=== PATIENT | male | born 1965 | race Caucasian/White ===

== ENCOUNTER 2021-04-17 16:59 | Inpatient (IN) | payer OTHER ==
[~2021-04-17] VITALS: Ht 180.3 cm; Wt 71.9 kg
[2021-04-17 17:51] LABS: BASOPHILS ABSOLUTE AUTO 0.04 K/mm3 (0.00-0.23); BASOPHILS PERCENT AUTO 1 % (0-2); EOSINOPHILS ABSOLUTE AUTO 0.09 K/mm3 (0.00-0.68); EOSINOPHILS PERCENT AUTO 1 % (0-6); Hematocrit 23.8 % (37.0-53.0); Hemoglobin 7.7 g/dL (13.5-17.5); IMMATURE GRAN ABSOLUTE AUTO 0.03 K/mm3 (0.00-0.10); IMMATURE GRAN PERCENT AUTO 0 % (0-1); LYMPHOCYTES ABSOLUTE AUTO 0.65 K/mm3 (0.84-5.20); LYMPHOCYTES PERCENT AUTO 10 % (21-46); MONOCYTES ABSOLUTE AUTO 0.41 K/mm3 (0.16-1.47); MONOCYTES PERCENT AUTO 6 % (4-13); Mean Corpuscular HGB 29.5 pg (26.0-34.0); Mean Corpuscular HGB Conc 32.4 g/dL (31.5-36.5); Mean Corpuscular Volume 91 fL (80-100); Mean Platelet Volume 9.3 fL (9.1-12.4); NEUTROPHILS ABSOLUTE AUTO 5.49 K/mm3 (1.96-9.15); NEUTROPHILS PERCENT AUTO 82 % (41-73); Platelet Count 295 K/mm3 (150-400); RDW Standard Deviation 44.4 fL (35.1-46.3); Red Blood Cell Count 2.61 M/mm3 (4.30-5.90); White Blood Cell Count 6.71 K/mm3 (4.00-11.30)
[2021-04-17 18:20] LABS: Albumin, Blood 2.9 g/dL (3.4-5.0); Albumin/Globulin Ratio 0.7 (0.8-1.8); Bilirubin, Total 0.9 mg/dL (0.1-1.0); Bun/Creatinine Ratio 7.4 (12.0-20.0); Calcium, Blood 8.9 mg/dL (8.5-10.1); Creatinine, Blood 8.97 mg/dL (0.60-1.20); Globulin, Blood 4.4 g/dL (2.2-4.0); Potassium, Blood 3.8 mmol/L (3.5-5.5); Total Protein, Blood 7.3 g/dL (6.4-8.2)
[2021-04-17] MEDS ORDERED: ONDA4 (19:35)
[2021-04-17] MEDS ORDERED: CATAPRES0.1 MG (19:35)
[2021-04-17] MEDS ORDERED: SODBIC650 PO (19:36)
[2021-04-17] MEDS ORDERED: AMLO10 PO (19:36)
[2021-04-17] MEDS ORDERED: OLAN5 PO (19:36)
[2021-04-17] MEDS ORDERED: Norco 5-325 Ta1 EACH (19:37)
[2021-04-17] MEDS ORDERED: CARV25 PO (19:37)
[2021-04-17] MEDS ORDERED: OMEPRAZOLE MAGN20 M1 PO (19:37)
[2021-04-17] MEDS ORDERED: MONT10T PO (21:01)
[2021-04-17] MEDS ORDERED: FURO40 PO (21:03)
[2021-04-17] MEDS ORDERED: ONDA4 PO (21:36)
[2021-04-17] MEDS ORDERED: CATAPRES0.1 MG PO (21:37)
[2021-04-17] MEDS ORDERED: Norco 5-325 Ta1 EACH PO (21:38)
[2021-04-17 23:47] LABS: Source, Urine Clean Catch
[2021-04-17 23:49] LABS: Bilirubin, Urine Neg (Neg); Blood, Urine 4+ (Neg); Glucose Qualitative, Urine Neg (Neg); Ketones, Urine Neg (Neg); Leukocyte Esterase, Urine 2+ (Neg); Nitrite, Urine Neg (Neg); Protein, Urine 2+ (Neg); Urobilinogen, Urine NORM (Normal)
[2021-04-17 23:55] LABS: Appearance, Urine Clear (Clear); Color, Urine Yellow (P-Yellow)
[2021-04-17 23:56] LABS: Amorphous Light (0-Heavy); Bacteria Few /hpf; Red Blood Cells, Urine 0-2 /hpf (0-2); Squamous Epithelial Cells Not Seen /hpf (Few)
--- NOTE | 2021-04-18 04:44 | NUR ---
SHIFT SUMMARY PT ADMITTED LAST NIGHT FOR DIZZINESS, HYPOTENSION & FALL @HOME. VSS. TELE NSR @77. RECIEVED 1U PRBC FOR HGB 7.7. AOX3, SELF, PLACE, SITUATION-UNAWARE OF YR. SLOW TO RESPOND TO QUESTIONS. FLAT AFFECT. PLEASENT & COOPERATIVE. DENIES PAIN OR SOB. HAD 1 EPISODE NAUSEA/EMESIS c ABOUT 50ML CLEAR LIGHT PINK EMESIS. MEDICATED c ZOFRAN & NO FURTHER EMESIS. ABD MILD DISTENDED, ACTIVE BT. REPORTS HEARTBURN FEELING THIS AM. ABDOMEN US PLANNED FOR TODAY. DR ROB CONSULTED FOR CKD, GFR 6 & CREAT 8.97. HAS FISTULA LAC, BRUIT/THRILL ASSESSED, PT HAS NEVER RECIEVED DIALYSIS-DR ROB REPORTED PT TO RECIEVE DIALYSIS THIS AM. HAS LRG AMOUNT BRUISING ON BILAT LEGS FROM CALVES TO THIGHS, ALONG c PETECHIA & PURPURA. ALSO HAS GOLF BALL SIZE GROWTH ON R FLANK, REDISH PINK c SEROUS DRAINAGE. ATTEMPTED TO CONSULT DERMATOLOGY PER DR ROB REQUEST, HOWEVER OFFICE IS CLOSED UNTIL 04/21. CALL LIGHT & BED ALARM IN PLACE. SISTER IN LAW INFORMED THIS NURSE THAT PTS LIVING CONDITIONS AT HIS HOUSE IN [place] MAY NOT BE GOOD FOR HIM TO GO BACK TO & STATED PT "DOESN'T HAVE RUNNING WATER AT HIS HOUSE," AND PT MAY NEED PLACEMENT OR ASSISTANCE AT OR.
[2021-04-18 05:31] LABS: BASOPHILS ABSOLUTE AUTO 0.04 K/mm3 (0.00-0.23); BASOPHILS PERCENT AUTO 1 % (0-2); EOSINOPHILS ABSOLUTE AUTO 0.15 K/mm3 (0.00-0.68); EOSINOPHILS PERCENT AUTO 2 % (0-6); Hematocrit 26.9 % (37.0-53.0); Hemoglobin 8.8 g/dL (13.5-17.5); IMMATURE GRAN ABSOLUTE AUTO 0.03 K/mm3 (0.00-0.10); IMMATURE GRAN PERCENT AUTO 0 % (0-1); LYMPHOCYTES PERCENT AUTO 10 % (21-46); MONOCYTES ABSOLUTE AUTO 0.47 K/mm3 (0.16-1.47); MONOCYTES PERCENT AUTO 7 % (4-13); Mean Corpuscular HGB 28.9 pg (26.0-34.0); Mean Corpuscular HGB Conc 32.7 g/dL (31.5-36.5); Mean Corpuscular Volume 89 fL (80-100); Mean Platelet Volume 9.5 fL (9.1-12.4); NEUTROPHILS ABSOLUTE AUTO 5.36 K/mm3 (1.96-9.15); NEUTROPHILS PERCENT AUTO 79 % (41-73); Platelet Count 279 K/mm3 (150-400); RDW Coefficient Variation 15.6 % (11.7-14.2); RDW Standard Deviation 48.3 fL (35.1-46.3); Red Blood Cell Count 3.04 M/mm3 (4.30-5.90); White Blood Cell Count 6.75 K/mm3 (4.00-11.30)
[2021-04-18 06:08] LABS: Alanine Aminotransfer (ALT/SGP 13 U/L (12-78); Albumin, Blood 2.7 g/dL (3.4-5.0); Albumin/Globulin Ratio 0.6 (0.8-1.8); Alk Phos 82 U/L (50-136); Anion Gap 12 mmol/L (6-16); Aspartate Aminotrans (AST/SGOT 4 U/L (12-37); Bilirubin, Direct 0.3 mg/dL (0.0-0.3); Bilirubin, Indirect 0.9 mg/dL (0.1-0.7); Bilirubin, Total 1.2 mg/dL (0.1-1.0); Blood Urea Nitrogen 70 mg/dL (8-24); CO2, Blood 18 mmol/L (21-32); CPK Creatine Kinase 42 U/L (39-308); Calcium, Blood 8.7 mg/dL (8.5-10.1); Chloride, Blood 106 mmol/L (98-108); Globulin, Blood 4.2 g/dL (2.2-4.0); Glucose, Blood 105 mg/dL (70-99); Magnesium, Blood 1.9 mg/dL (1.6-2.4); Phosphorus, Blood 5.5 mg/dL (2.5-4.9); Potassium, Blood 3.8 mmol/L (3.5-5.5); Sodium, Blood 136 mmol/L (136-145); Total Protein, Blood 6.9 g/dL (6.4-8.2)
[2021-04-18 06:14] LABS: Creatinine, Blood 8.72 mg/dL (0.60-1.20); Glomerular Filtration Rate 6 (60-)
--- NOTE | 2021-04-18 16:47 | NUR ---
Provided CKD diet education. Discussed limiting sodium which pt reported he already does, but then pt was uanble to verbalize foods high in sodium. Discussed protein recommendations while not on dialysis vs recommendations if he starts dialysis. Discussed limiting K and Phos depending on labs. Discussed that Phos is currently high and reviewed dietary sources of Phos. Pt actively participated in education but did not apepar to understand all of the topics covered. Reinforcement will likely be needed.
--- NOTE | 2021-04-18 16:59 | NUR ---
SHIFT SUMMARY PATIENT IS ALERT AND ORIENTED X3 UNSURE OF DATE. ON RA, NS RUNNING AT 75 MLS AN HOUR. PATIENT IS DOING A 24HR URINE TEST CURRENTLY UNTIL 04/19. GENERAL SURGERY WAS CONSULTED TODAY FOR A GROWTH ON THE PATIENT'S RIGHT FLANK AREA. VSS, PATIENT IS RESTING IN BED. NO ACUTE CHANGES THIS SHIFT. WILL CONTINUE TO CARE FOR UNTIL SHIFT REPORT IS GIVEN TO ONCOMING NURSE.
[2021-04-19 05:34] LABS: BASOPHILS ABSOLUTE AUTO 0.05 K/mm3 (0.00-0.23); BASOPHILS PERCENT AUTO 1 % (0-2); EOSINOPHILS ABSOLUTE AUTO 0.22 K/mm3 (0.00-0.68); EOSINOPHILS PERCENT AUTO 4 % (0-6); Hematocrit 21.6 % (37.0-53.0); Hemoglobin 6.9 g/dL (13.5-17.5); IMMATURE GRAN ABSOLUTE AUTO 0.02 K/mm3 (0.00-0.10); IMMATURE GRAN PERCENT AUTO 0 % (0-1); LYMPHOCYTES ABSOLUTE AUTO 0.94 K/mm3 (0.84-5.20); LYMPHOCYTES PERCENT AUTO 19 % (21-46); MONOCYTES ABSOLUTE AUTO 0.51 K/mm3 (0.16-1.47); MONOCYTES PERCENT AUTO 10 % (4-13); Mean Corpuscular HGB 28.9 pg (26.0-34.0); Mean Corpuscular HGB Conc 31.9 g/dL (31.5-36.5); Mean Corpuscular Volume 90 fL (80-100); Mean Platelet Volume 9.4 fL (9.1-12.4); NEUTROPHILS ABSOLUTE AUTO 3.35 K/mm3 (1.96-9.15); NEUTROPHILS PERCENT AUTO 66 % (41-73); Platelet Count 214 K/mm3 (150-400); RDW Coefficient Variation 15.9 % (11.7-14.2); RDW Standard Deviation 50.4 fL (35.1-46.3); Red Blood Cell Count 2.39 M/mm3 (4.30-5.90); White Blood Cell Count 5.09 K/mm3 (4.00-11.30)
[2021-04-19 06:15] LABS: Protein, Urine Quantitative 69.4 mg/dL (0.0-11.9)
[2021-04-19 06:19] LABS: Magnesium, Blood 1.6 mg/dL (1.6-2.4)
[2021-04-19 06:25] LABS: Albumin, Blood 2.3 g/dL (3.4-5.0); Anion Gap 11 mmol/L (6-16); Blood Urea Nitrogen 72 mg/dL (8-24); Bun/Creatinine Ratio 8.2 (12.0-20.0); CO2, Blood 20 mmol/L (21-32); Calcium, Blood 7.9 mg/dL (8.5-10.1); Chloride, Blood 106 mmol/L (98-108); Creatinine, Blood 8.74 mg/dL (0.60-1.20); Glomerular Filtration Rate 6 (60-); Glucose, Blood 98 mg/dL (70-99); Phosphorus, Blood 5.3 mg/dL (2.5-4.9); Potassium, Blood 3.8 mmol/L (3.5-5.5); Sodium, Blood 137 mmol/L (136-145)
--- NOTE | 2021-04-19 06:41 | NUR ---
SHIFT SUMMARY PATIENT ALERT AND ORIENTED X3. HAD NO COMPLAINTS OF PAIN OR SHORTNESS OF BREATH. NO ACUTE ISSUES NOTED OVERNIGHT. BED IN LOWEST POSITION WITH WHEELS LOCKED AND ALARM ON. CALL LIGHT WITHIN REACH. REPORT GIVEN TO ONCOMING RN.
--- NOTE | 2021-04-19 16:57 | NUR ---
SHIFT SUMMARY PT AAOX3, HAS A FLAT AFFECT. PLEASANT AND COOPERATIVE TO CARE. ABLE TO MAKE NEEDS KNOWN. PT WORKED WITH THERAPY THIS SHIFT. PT REQUIRES 1P ASSIST W/ FWW WHEN AMBULATING. USES URINAL AT BEDSIDE, DENIES URINARY DISCOMFORT. PT MEDICATED FOR PAIN PER EMAR. PT HAD 1 UNIT PRBC THIS SHIFT ORDERED, VSS, NO ASE NOTED DURING AND AFTER TRANSFUSION. NO C/O CP, SOB, OR N/V/D. BED AT LOWEST POSITION. CALL LIGHT WITHIN REACH.
[2021-04-19 17:35] LABS: Hematocrit 26.4 % (37.0-53.0); Hemoglobin 8.6 g/dL (13.5-17.5)
[2021-04-20 05:16] LABS: BASOPHILS ABSOLUTE AUTO 0.03 K/mm3 (0.00-0.23); BASOPHILS PERCENT AUTO 1 % (0-2); EOSINOPHILS ABSOLUTE AUTO 0.28 K/mm3 (0.00-0.68); EOSINOPHILS PERCENT AUTO 6 % (0-6); Hemoglobin 9.1 g/dL (13.5-17.5); IMMATURE GRAN ABSOLUTE AUTO 0.02 K/mm3 (0.00-0.10); IMMATURE GRAN PERCENT AUTO 0 % (0-1); LYMPHOCYTES ABSOLUTE AUTO 0.79 K/mm3 (0.84-5.20); LYMPHOCYTES PERCENT AUTO 17 % (21-46); MONOCYTES ABSOLUTE AUTO 0.51 K/mm3 (0.16-1.47); MONOCYTES PERCENT AUTO 11 % (4-13); Mean Corpuscular HGB 30.1 pg (26.0-34.0); Mean Corpuscular HGB Conc 33.7 g/dL (31.5-36.5); Mean Corpuscular Volume 89 fL (80-100); Mean Platelet Volume 9.5 fL (9.1-12.4); NEUTROPHILS ABSOLUTE AUTO 3.12 K/mm3 (1.96-9.15); NEUTROPHILS PERCENT AUTO 66 % (41-73); Platelet Count 228 K/mm3 (150-400); RDW Coefficient Variation 15.6 % (11.7-14.2); RDW Standard Deviation 49.1 fL (35.1-46.3); Red Blood Cell Count 3.02 M/mm3 (4.30-5.90); White Blood Cell Count 4.75 K/mm3 (4.00-11.30)
--- NOTE | 2021-04-20 06:11 | NUR ---
SHIFT SUMMARY PATIENT ALERT AND ORIENTED X3. HAD NO COMPLAINTS OF PAIN OR SHORTNESS OF BREATH. SLEPT WELL OVERNIGHT. NO ACUTE ISSUES NOTED. CALL LIGHT WITHIN REACH. REPORT GIVEN TO ONCOMING RN.
[2021-04-20 06:23] LABS: Albumin, Blood 2.3 g/dL (3.4-5.0); Albumin/Globulin Ratio 0.7 (0.8-1.8); Bilirubin, Direct 0.3 mg/dL (0.0-0.3); Bilirubin, Indirect 0.5 mg/dL (0.1-0.7); Bilirubin, Total 0.8 mg/dL (0.1-1.0); Calcium, Blood 8.2 mg/dL (8.5-10.1); Globulin, Blood 3.1 g/dL (2.2-4.0); Magnesium, Blood 1.6 mg/dL (1.6-2.4); Phosphorus, Blood 4.9 mg/dL (2.5-4.9); Potassium, Blood 3.7 mmol/L (3.5-5.5); Total Protein, Blood 5.4 g/dL (6.4-8.2)
[2021-04-20 06:31] LABS: Bun/Creatinine Ratio 8.3 (12.0-20.0); Creatinine, Blood 8.1 mg/dL (0.60-1.20)
--- NOTE | 2021-04-20 18:02 | NUR ---
PT A/O X 3, QUIET TODAY WITH A MOSTLY FLAT AFFECT, HAS BEEN PLEASANT AND COOPERATIVE. TELE DISCONTINUED THIS MORNING, LABS IMPROVING AND HE DID NOT RECEIVE DIALYSIS TODAY. NO REPORTS PAIN, SOB OR DIZZINESS TODAY. NO ACUTE CHANGES NOTED THIS SHIFT, CALL HINES IN REACH, WILL CONTINUE TO MONITOR AND REPORT TO ONCOMING RN
[2021-04-21 05:43] LABS: BASOPHILS ABSOLUTE AUTO 0.04 K/mm3 (0.00-0.23); BASOPHILS PERCENT AUTO 1 % (0-2); EOSINOPHILS ABSOLUTE AUTO 0.29 K/mm3 (0.00-0.68); EOSINOPHILS PERCENT AUTO 6 % (0-6); Hemoglobin 8.6 g/dL (13.5-17.5); IMMATURE GRAN ABSOLUTE AUTO 0.02 K/mm3 (0.00-0.10); IMMATURE GRAN PERCENT AUTO 0 % (0-1); LYMPHOCYTES PERCENT AUTO 14 % (21-46); MONOCYTES ABSOLUTE AUTO 0.47 K/mm3 (0.16-1.47); MONOCYTES PERCENT AUTO 10 % (4-13); Mean Corpuscular HGB Conc 33.1 g/dL (31.5-36.5); Mean Corpuscular Volume 91 fL (80-100); Mean Platelet Volume 9.6 fL (9.1-12.4); NEUTROPHILS ABSOLUTE AUTO 3.43 K/mm3 (1.96-9.15); NEUTROPHILS PERCENT AUTO 69 % (41-73); Platelet Count 224 K/mm3 (150-400); RDW Coefficient Variation 15.8 % (11.7-14.2); RDW Standard Deviation 49.7 fL (35.1-46.3); Red Blood Cell Count 2.87 M/mm3 (4.30-5.90); White Blood Cell Count 4.95 K/mm3 (4.00-11.30)
--- NOTE | 2021-04-21 06:26 | NUR ---
SHIFT SUMMARY PATIENT ALERT AND ORIENTED X3. HAD NO COMPLAINTS OF PAIN OR SHORTNESS OF BREATH. NO ACUTE ISSUES NOTED OVERNIGHT. CALL LIGHT WITHIN REACH. REPORT GIVEN TO ONCOMING RN.
[2021-04-21 06:36] LABS: Albumin, Blood 2.1 g/dL (3.4-5.0); Albumin/Globulin Ratio 0.7 (0.8-1.8); Bilirubin, Direct 0.2 mg/dL (0.0-0.3); Bilirubin, Indirect 0.4 mg/dL (0.1-0.7); Bilirubin, Total 0.6 mg/dL (0.1-1.0); Bun/Creatinine Ratio 8.2 (12.0-20.0); Calcium, Blood 7.8 mg/dL (8.5-10.1); Creatinine, Blood 7.47 mg/dL (0.60-1.20); Globulin, Blood 3.2 g/dL (2.2-4.0); Magnesium, Blood 1.5 mg/dL (1.6-2.4); Phosphorus, Blood 4.2 mg/dL (2.5-4.9); Potassium, Blood 3.9 mmol/L (3.5-5.5); Total Protein, Blood 5.3 g/dL (6.4-8.2)
[2021-04-21 13:10] LABS: ANA DIRECT Negative (Negative); ANTIGLOMERULAR BM AB 3 units (0-20); ANTIMYELOPEROXIDASE (MPO) ABS <9.0 U/mL (0.0-9.0); ANTIPROTEINASE 3 (PR-3) ABS <3.5 U/mL (0.0-3.5); ATYPICAL PANCA <1:20 titer (Neg:<1:20); CYTOPLASMIC (C-ANCA) <1:20 titer (Neg:<1:20); PERINUCLEAR (P-ANCA) <1:20 titer (Neg:<1:20)
[2021-04-21 14:10] LABS: M-SPIKE, % 8.9 % (Not Observed); M-SPIKE, MG/24 HR 49.5 mg/24 hr (Not Observed); PROTEIN,TOTAL,URINE 39.7 mg/dL (Not Estab.)
[2021-04-21 14:10] LABS: ALPHA-1-GLOBULIN 0.4 g/dL (0.0-0.4); ALPHA-2-GLOBULIN 0.9 g/dL (0.4-1.0); BETA GLOBULIN 0.8 g/dL (0.7-1.3); GLOBULIN, TOTAL 3.1 g/dL (2.2-3.9); IMMUNOGLOBULIN A, QN, SERUM 132 mg/dL (90-386); IMMUNOGLOBULIN G, QN, SERUM 884 mg/dL (603-1613); IMMUNOGLOBULIN M, QN, SERUM 80 mg/dL (20-172); M-SPIKE Not Observed g/dL (Not Observed); PROTEIN, TOTAL, SERUM 6.1 g/dL (6.0-8.5)
--- NOTE | 2021-04-21 17:32 | NUR ---
PATIENT IS ALERT AND ORIENTED AND COOPERATIVE WITH CARE. C/O PAIN, EMDICATED PER EMAR. USES THE URINAL INDEPENDENTLY. WORKED WITH PHYSICAL THERAPY THIS AFTERNOON AND WAS MADE INDEPENDENT IN HIS ROOM. THE GROWTH ON HIS RIGHT FLANK WAS CLEANED AND DRESSED. WILL CONTINUE TO MONITOR
[2021-04-22 05:52] LABS: BASOPHILS ABSOLUTE AUTO 0.04 K/mm3 (0.00-0.23); BASOPHILS PERCENT AUTO 1 % (0-2); EOSINOPHILS ABSOLUTE AUTO 0.35 K/mm3 (0.00-0.68); EOSINOPHILS PERCENT AUTO 9 % (0-6); Hematocrit 26.1 % (37.0-53.0); Hemoglobin 8.3 g/dL (13.5-17.5); IMMATURE GRAN ABSOLUTE AUTO 0.01 K/mm3 (0.00-0.10); IMMATURE GRAN PERCENT AUTO 0 % (0-1); LYMPHOCYTES ABSOLUTE AUTO 0.78 K/mm3 (0.84-5.20); LYMPHOCYTES PERCENT AUTO 20 % (21-46); MONOCYTES ABSOLUTE AUTO 0.47 K/mm3 (0.16-1.47); MONOCYTES PERCENT AUTO 12 % (4-13); Mean Corpuscular HGB 29.4 pg (26.0-34.0); Mean Corpuscular HGB Conc 31.8 g/dL (31.5-36.5); Mean Corpuscular Volume 93 fL (80-100); Mean Platelet Volume 9.4 fL (9.1-12.4); NEUTROPHILS ABSOLUTE AUTO 2.36 K/mm3 (1.96-9.15); NEUTROPHILS PERCENT AUTO 59 % (41-73); Platelet Count 224 K/mm3 (150-400); RDW Coefficient Variation 15.8 % (11.7-14.2); RDW Standard Deviation 49.2 fL (35.1-46.3); Red Blood Cell Count 2.82 M/mm3 (4.30-5.90); White Blood Cell Count 4.01 K/mm3 (4.00-11.30)
--- NOTE | 2021-04-22 06:18 | NUR ---
STONE PRODUCT FABRICATOR SUMMARY ADMITTED FOR POSTURAL DIZZINESS WITH PRESYNCOPE. PT IS A FULL CODE. POSSIBLE D/C HOME. PT HAS BEEN INDEPENDENT IN THE ROOM. COOPERATIVE WITH CARE. RECEIVING IV SODIUM BICARBONATE. NO OTHER CONCERNS THIS SHIFT.
[2021-04-22 06:47] LABS: Anion Gap 12 mmol/L (6-16); Blood Urea Nitrogen 59 mg/dL (8-24); Bun/Creatinine Ratio 8.5 (12.0-20.0); CO2, Blood 25 mmol/L (21-32); Chloride, Blood 104 mmol/L (98-108); Creatinine, Blood 6.98 mg/dL (0.60-1.20); Glomerular Filtration Rate 8 (60-); Glucose, Blood 89 mg/dL (70-99); Magnesium, Blood 1.5 mg/dL (1.6-2.4); Phosphorus, Blood 4.3 mg/dL (2.5-4.9); Potassium, Blood 3.8 mmol/L (3.5-5.5); Sodium, Blood 141 mmol/L (136-145)
--- NOTE | 2021-04-22 17:07 | NUR ---
PATIENT IS ALERT AND ORIENTED AND COOPERATIVE WITH CARE. HE HAS BEEN INDEPENDENT IN HIS ROOM. USES THE URINAL. MEDICATED FOR PAIN PER EMAR. THE PATIENT'S BROTHER IS AT THE BEDSIDE AT THIS TIME. WILL CONTINUE TO MONITOR
[2021-04-23 05:31] LABS: BASOPHILS ABSOLUTE AUTO 0.03 K/mm3 (0.00-0.23); BASOPHILS PERCENT AUTO 1 % (0-2); EOSINOPHILS ABSOLUTE AUTO 0.32 K/mm3 (0.00-0.68); EOSINOPHILS PERCENT AUTO 9 % (0-6); Hematocrit 27.4 % (37.0-53.0); Hemoglobin 8.7 g/dL (13.5-17.5); IMMATURE GRAN ABSOLUTE AUTO 0.02 K/mm3 (0.00-0.10); IMMATURE GRAN PERCENT AUTO 1 % (0-1); LYMPHOCYTES ABSOLUTE AUTO 0.53 K/mm3 (0.84-5.20); LYMPHOCYTES PERCENT AUTO 15 % (21-46); MONOCYTES ABSOLUTE AUTO 0.42 K/mm3 (0.16-1.47); MONOCYTES PERCENT AUTO 12 % (4-13); Mean Corpuscular HGB 29.6 pg (26.0-34.0); Mean Corpuscular HGB Conc 31.8 g/dL (31.5-36.5); Mean Corpuscular Volume 93 fL (80-100); Mean Platelet Volume 9.2 fL (9.1-12.4); NEUTROPHILS ABSOLUTE AUTO 2.14 K/mm3 (1.96-9.15); NEUTROPHILS PERCENT AUTO 62 % (41-73); Platelet Count 217 K/mm3 (150-400); RDW Coefficient Variation 16.1 % (11.7-14.2); RDW Standard Deviation 51.1 fL (35.1-46.3); Red Blood Cell Count 2.94 M/mm3 (4.30-5.90); White Blood Cell Count 3.46 K/mm3 (4.00-11.30)
[2021-04-23 05:49] LABS: Anion Gap 9 mmol/L (6-16); Blood Urea Nitrogen 55 mg/dL (8-24); Bun/Creatinine Ratio 8.1 (12.0-20.0); CO2, Blood 25 mmol/L (21-32); Calcium, Blood 8.4 mg/dL (8.5-10.1); Chloride, Blood 105 mmol/L (98-108); Creatinine, Blood 6.82 mg/dL (0.60-1.20); Glomerular Filtration Rate 8 (60-); Glucose, Blood 93 mg/dL (70-99); Magnesium, Blood 1.8 mg/dL (1.6-2.4); Phosphorus, Blood 3.8 mg/dL (2.5-4.9); Potassium, Blood 4.1 mmol/L (3.5-5.5); Sodium, Blood 139 mmol/L (136-145)
--- NOTE | 2021-04-23 16:53 | NUR ---
SHIFT SUMMARY PT GETTING IV FLUIDS, NS AT 75 ML/HR. LIANE CONSULTED AND MANAGING THIS. PT ANXIOUS ABOUT PLAN MOVING FORWARD, WETHER HE WILL NEED DIALYSIS OR NOT. THIS DECISION HAS NOT BEEN MADE BY NEPHROLOGY YET. PT REFUSED TO GET OUT OF BED TODAY, BUT IS AGREEABLE TO GETTING UP FOR DINNER. PT MEDICATED FOR PAIN SCHEDULED FOR HIS SCOLIOSIS. DENIES OTHER NEEDS AT THIS TIME. NO OTHER ACUTE CHANGES IN ASSESSMENT AT THIS TIME. VS REVIEWED. PT RESTING IN BED. CALL LIGHT IN REACH.
--- NOTE | 2021-04-24 05:39 | NUR ---
PT AWAKE, LYING IN BED, WATCHING TV. AAOX4. NO COMPLAINTS VOICED. LUE FISTULA +BRUITS,+THRILLS.BED IN LOW POSITION W/ CALL LIGHT WITHIN REACH. DR ROB AT BEDSIDE A FEW MINUTES AGO AND GAVE ORDERS TO CHANGE THE RATE OF THE IV FLUIDS FROM 75ML/HR TO 50ML/HR. PT UPDATED ON THE PLAN OF CARE. WILL CONTINUE TO MONITOR.
[2021-04-24 06:16] LABS: Anion Gap 8 mmol/L (6-16); Blood Urea Nitrogen 56 mg/dL (8-24); Bun/Creatinine Ratio 8.2 (12.0-20.0); CO2, Blood 25 mmol/L (21-32); Calcium, Blood 8.4 mg/dL (8.5-10.1); Chloride, Blood 107 mmol/L (98-108); Creatinine, Blood 6.87 mg/dL (0.60-1.20); Glomerular Filtration Rate 8 (60-); Glucose, Blood 91 mg/dL (70-99); Magnesium, Blood 1.8 mg/dL (1.6-2.4); Phosphorus, Blood 4.1 mg/dL (2.5-4.9); Potassium, Blood 4.3 mmol/L (3.5-5.5); Sodium, Blood 140 mmol/L (136-145)
[2021-04-24 06:53] LABS: BASOPHILS ABSOLUTE AUTO 0.02 K/mm3 (0.00-0.23); BASOPHILS PERCENT AUTO 1 % (0-2); EOSINOPHILS ABSOLUTE AUTO 0.28 K/mm3 (0.00-0.68); EOSINOPHILS PERCENT AUTO 10 % (0-6); Hematocrit 26.9 % (37.0-53.0); Hemoglobin 8.4 g/dL (13.5-17.5); IMMATURE GRAN ABSOLUTE AUTO 0.01 K/mm3 (0.00-0.10); IMMATURE GRAN PERCENT AUTO 0 % (0-1); LYMPHOCYTES ABSOLUTE AUTO 0.52 K/mm3 (0.84-5.20); LYMPHOCYTES PERCENT AUTO 18 % (21-46); MONOCYTES ABSOLUTE AUTO 0.37 K/mm3 (0.16-1.47); MONOCYTES PERCENT AUTO 13 % (4-13); Mean Corpuscular HGB 29.7 pg (26.0-34.0); Mean Corpuscular HGB Conc 31.2 g/dL (31.5-36.5); Mean Corpuscular Volume 95 fL (80-100); Mean Platelet Volume 9.5 fL (9.1-12.4); NEUTROPHILS ABSOLUTE AUTO 1.69 K/mm3 (1.96-9.15); NEUTROPHILS PERCENT AUTO 59 % (41-73); Platelet Count 228 K/mm3 (150-400); RDW Coefficient Variation 16.1 % (11.7-14.2); RDW Standard Deviation 53.3 fL (35.1-46.3); Red Blood Cell Count 2.83 M/mm3 (4.30-5.90); White Blood Cell Count 2.89 K/mm3 (4.00-11.30)
--- NOTE | 2021-04-24 17:52 | NUR ---
PATIENT IS ALERT AND ORIENTED AND COOPERATIVE WITH CARE. PATIENT HAD HIS FIRST DIALYSIS TREATMENT TODAY. HE SHOWERED THIS AFTERNOON. INDEPENDENT IN HIS ROOM. PAIN MEDICATED PER EMAR. WILL CONTINUE TO MONITOR
[2021-04-25 05:14] LABS: BASOPHILS ABSOLUTE AUTO 0.03 K/mm3 (0.00-0.23); BASOPHILS PERCENT AUTO 1 % (0-2); EOSINOPHILS ABSOLUTE AUTO 0.22 K/mm3 (0.00-0.68); EOSINOPHILS PERCENT AUTO 7 % (0-6); Hematocrit 25.6 % (37.0-53.0); Hemoglobin 8.1 g/dL (13.5-17.5); IMMATURE GRAN ABSOLUTE AUTO 0.01 K/mm3 (0.00-0.10); IMMATURE GRAN PERCENT AUTO 0 % (0-1); LYMPHOCYTES ABSOLUTE AUTO 0.65 K/mm3 (0.84-5.20); LYMPHOCYTES PERCENT AUTO 21 % (21-46); MONOCYTES ABSOLUTE AUTO 0.56 K/mm3 (0.16-1.47); MONOCYTES PERCENT AUTO 18 % (4-13); Mean Corpuscular HGB 30.1 pg (26.0-34.0); Mean Corpuscular HGB Conc 31.6 g/dL (31.5-36.5); Mean Corpuscular Volume 95 fL (80-100); Mean Platelet Volume 9.4 fL (9.1-12.4); NEUTROPHILS ABSOLUTE AUTO 1.64 K/mm3 (1.96-9.15); NEUTROPHILS PERCENT AUTO 53 % (41-73); Platelet Count 198 K/mm3 (150-400); RDW Coefficient Variation 16.7 % (11.7-14.2); RDW Standard Deviation 55.3 fL (35.1-46.3); Red Blood Cell Count 2.69 M/mm3 (4.30-5.90); White Blood Cell Count 3.11 K/mm3 (4.00-11.30)
[2021-04-25 05:46] LABS: Anion Gap 9 mmol/L (6-16); Blood Urea Nitrogen 39 mg/dL (8-24); Bun/Creatinine Ratio 7.4 (12.0-20.0); CO2, Blood 29 mmol/L (21-32); Calcium, Blood 8.3 mg/dL (8.5-10.1); Chloride, Blood 106 mmol/L (98-108); Creatinine, Blood 5.25 mg/dL (0.60-1.20); Glomerular Filtration Rate 11 (60-); Glucose, Blood 92 mg/dL (70-99); Magnesium, Blood 1.7 mg/dL (1.6-2.4); Phosphorus, Blood 3.4 mg/dL (2.5-4.9); Sodium, Blood 144 mmol/L (136-145)
--- NOTE | 2021-04-25 06:28 | NUR ---
PT RESTED WELL OVERNIGHT. NO COMPLAINTS VOICED. LUE AV FISTULA +BRUITS AND +THRILLS. IVF CONTINUES, IV SITE BENIGN. PT HAD FIRST SESSION OF HEMODIALYSIS YESTERDAY, 04/24/21 FOR 2.5 HRS AND 500ML REMOVED. PT CONTINUES TO HAVE URINE OUTPUT. MEDICATED FOR CHRONIC BACK PAIN SCHEDULED PER EMAR WITH GOOD EFFECT. BED IN LOW POSITION WITH THE CALL LIGHT WITHIN EASY REACH.
[2021-04-25 08:09] LABS: HBSAG SCREEN Negative (Negative); HEP A AB, IGM Negative (Negative); HEP B CORE AB, IGM Negative (Negative); HEP C VIRUS AB 0.1 (0.0-0.9)
--- NOTE | 2021-04-25 18:34 | NUR ---
SHIFT SUMMARY PT WITH UNEVENTFUL DAY. AA &OX4. NO C/O PAIN, SOB OR N/V VOICED. NAD NOTED, VSS. BROTER AT BEDSIDE. WORKED WITH PT WITHOUT ANY ISSUES AND WALKED THE LEUNG MULTIPLE TIMES. RECEIVED SCHEDULED PAIN MEDS X 2. WILL CONTINUE TO MONITOR IN CARE
[2021-04-26 05:51] LABS: BASOPHILS ABSOLUTE AUTO 0.03 K/mm3 (0.00-0.23); BASOPHILS PERCENT AUTO 1 % (0-2); EOSINOPHILS ABSOLUTE AUTO 0.27 K/mm3 (0.00-0.68); EOSINOPHILS PERCENT AUTO 9 % (0-6); Hematocrit 25.9 % (37.0-53.0); IMMATURE GRAN ABSOLUTE AUTO 0.01 K/mm3 (0.00-0.10); IMMATURE GRAN PERCENT AUTO 0 % (0-1); LYMPHOCYTES ABSOLUTE AUTO 0.58 K/mm3 (0.84-5.20); LYMPHOCYTES PERCENT AUTO 19 % (21-46); MONOCYTES ABSOLUTE AUTO 0.38 K/mm3 (0.16-1.47); MONOCYTES PERCENT AUTO 12 % (4-13); Mean Corpuscular HGB 29.7 pg (26.0-34.0); Mean Corpuscular HGB Conc 30.9 g/dL (31.5-36.5); Mean Corpuscular Volume 96 fL (80-100); Mean Platelet Volume 9.4 fL (9.1-12.4); NEUTROPHILS ABSOLUTE AUTO 1.79 K/mm3 (1.96-9.15); NEUTROPHILS PERCENT AUTO 59 % (41-73); Platelet Count 202 K/mm3 (150-400); RDW Coefficient Variation 16.6 % (11.7-14.2); RDW Standard Deviation 56.8 fL (35.1-46.3); Red Blood Cell Count 2.69 M/mm3 (4.30-5.90); White Blood Cell Count 3.06 K/mm3 (4.00-11.30)
[2021-04-26 06:23] LABS: Anion Gap 7 mmol/L (6-16); Blood Urea Nitrogen 44 mg/dL (8-24); Bun/Creatinine Ratio 7.5 (12.0-20.0); CO2, Blood 28 mmol/L (21-32); Calcium, Blood 8.2 mg/dL (8.5-10.1); Chloride, Blood 108 mmol/L (98-108); Creatinine, Blood 5.86 mg/dL (0.60-1.20); Glomerular Filtration Rate 10 (60-); Glucose, Blood 94 mg/dL (70-99); Magnesium, Blood 1.8 mg/dL (1.6-2.4); Phosphorus, Blood 3.4 mg/dL (2.5-4.9); Potassium, Blood 4.2 mmol/L (3.5-5.5); Sodium, Blood 143 mmol/L (136-145)
--- NOTE | 2021-04-26 18:34 | NUR ---
SHIFT SUMMARY PT LAYING IN BED VISITING WITH FAMILY MEMBER AND EATING DINNER. HAD A FAIRLY GOOD DAY WITH NO OCCURANCES. NO C/O PAIN, SON OR N/V VOICED. NAD NOTED, VSS. MEDICATED WITH SCHEDULED MEDS X 2. TOLERATED MEALS FINE AND AMBULATED LEUNG X 2 TODAY.
[2021-04-27 05:19] LABS: BASOPHILS ABSOLUTE AUTO 0.03 K/mm3 (0.00-0.23); BASOPHILS PERCENT AUTO 1 % (0-2); EOSINOPHILS ABSOLUTE AUTO 0.26 K/mm3 (0.00-0.68); EOSINOPHILS PERCENT AUTO 8 % (0-6); Hematocrit 26.8 % (37.0-53.0); Hemoglobin 8.2 g/dL (13.5-17.5); IMMATURE GRAN ABSOLUTE AUTO 0.01 K/mm3 (0.00-0.10); IMMATURE GRAN PERCENT AUTO 0 % (0-1); LYMPHOCYTES ABSOLUTE AUTO 0.51 K/mm3 (0.84-5.20); LYMPHOCYTES PERCENT AUTO 15 % (21-46); MONOCYTES ABSOLUTE AUTO 0.44 K/mm3 (0.16-1.47); MONOCYTES PERCENT AUTO 13 % (4-13); Mean Corpuscular HGB 29.7 pg (26.0-34.0); Mean Corpuscular HGB Conc 30.6 g/dL (31.5-36.5); Mean Corpuscular Volume 97 fL (80-100); Mean Platelet Volume 9.8 fL (9.1-12.4); NEUTROPHILS ABSOLUTE AUTO 2.11 K/mm3 (1.96-9.15); NEUTROPHILS PERCENT AUTO 63 % (41-73); Platelet Count 195 K/mm3 (150-400); RDW Coefficient Variation 16.9 % (11.7-14.2); RDW Standard Deviation 58.4 fL (35.1-46.3); Red Blood Cell Count 2.76 M/mm3 (4.30-5.90); White Blood Cell Count 3.36 K/mm3 (4.00-11.30)
[2021-04-27 05:41] LABS: Albumin, Blood 2.2 g/dL (3.4-5.0); Anion Gap 9 mmol/L (6-16); Blood Urea Nitrogen 53 mg/dL (8-24); Bun/Creatinine Ratio 7.9 (12.0-20.0); CO2, Blood 26 mmol/L (21-32); Calcium, Blood 8.5 mg/dL (8.5-10.1); Chloride, Blood 108 mmol/L (98-108); Creatinine, Blood 6.73 mg/dL (0.60-1.20); Glomerular Filtration Rate 9 (60-); Glucose, Blood 97 mg/dL (70-99); Magnesium, Blood 1.8 mg/dL (1.6-2.4); Phosphorus, Blood 3.4 mg/dL (2.5-4.9); Potassium, Blood 4.5 mmol/L (3.5-5.5); Sodium, Blood 143 mmol/L (136-145)
--- NOTE | 2021-04-27 06:07 | NUR ---
PT LYING IN BED WITH EYES CLOSED. NO COMPLAINTS VOICED. SCHEDULED MEDICATIONS ADMINITERED ORDERED. DR ROB SAW PT LAST NIGHT AND ORDERED THAT THE IV FLUIDS BE DISCONTINUED. ORDERS CARRIED OUT AND PT UPDATED ON THE PLAN OF CARE. MADISON AV FISTULA +BRUITS/+THRILLS. PT SCHEDULED TO HAVE HEMODIALYSIS AT 0900 THIS MORNING. VSS DURING SHIFT. BED IS IN LOW POSITION WITH THE CALL LIGHT WITHIN EASY REACH. WILL CONTINUE TO MONITOR.
--- NOTE | 2021-04-27 16:53 | NUR ---
SHIFT SUMMARY PT AXO, PLEASANT AND COOPERATIVE WITH CARE. PATIENT HAD DIALYSIS THIS SHIFT. MEDICATED FOR PAIN PER EMAR. DENIES SOB AND NV. INDEPENDENT IN ROOM. IV PATENT AND SALINE LOCKED. WITH ROUNDING, PT DENIES ANY NEEDS. NO ACUTE CHANGES THIS SHIFT. BED IN LOW POSITION, CALL LIGHT WITH REACH. ON RA.
[2021-04-28 05:01] LABS: BASOPHILS ABSOLUTE AUTO 0.04 K/mm3 (0.00-0.23); BASOPHILS PERCENT AUTO 1 % (0-2); EOSINOPHILS ABSOLUTE AUTO 0.23 K/mm3 (0.00-0.68); EOSINOPHILS PERCENT AUTO 7 % (0-6); Hematocrit 26.7 % (37.0-53.0); Hemoglobin 8.4 g/dL (13.5-17.5); IMMATURE GRAN ABSOLUTE AUTO 0.02 K/mm3 (0.00-0.10); IMMATURE GRAN PERCENT AUTO 1 % (0-1); LYMPHOCYTES ABSOLUTE AUTO 0.61 K/mm3 (0.84-5.20); LYMPHOCYTES PERCENT AUTO 18 % (21-46); MONOCYTES ABSOLUTE AUTO 0.45 K/mm3 (0.16-1.47); MONOCYTES PERCENT AUTO 13 % (4-13); Mean Corpuscular HGB 30.4 pg (26.0-34.0); Mean Corpuscular HGB Conc 31.5 g/dL (31.5-36.5); Mean Corpuscular Volume 97 fL (80-100); Mean Platelet Volume 9.8 fL (9.1-12.4); NEUTROPHILS ABSOLUTE AUTO 2.12 K/mm3 (1.96-9.15); NEUTROPHILS PERCENT AUTO 61 % (41-73); Platelet Count 204 K/mm3 (150-400); RDW Coefficient Variation 16.9 % (11.7-14.2); Red Blood Cell Count 2.76 M/mm3 (4.30-5.90); White Blood Cell Count 3.47 K/mm3 (4.00-11.30)
[2021-04-28 05:43] LABS: Albumin, Blood 2.2 g/dL (3.4-5.0); Anion Gap 7 mmol/L (6-16); Blood Urea Nitrogen 42 mg/dL (8-24); Bun/Creatinine Ratio 8.4 (12.0-20.0); CO2, Blood 30 mmol/L (21-32); Calcium, Blood 8.5 mg/dL (8.5-10.1); Chloride, Blood 106 mmol/L (98-108); Creatinine, Blood 5.01 mg/dL (0.60-1.20); Glomerular Filtration Rate 12 (60-); Glucose, Blood 94 mg/dL (70-99); Magnesium, Blood 1.9 mg/dL (1.6-2.4); Phosphorus, Blood 2.6 mg/dL (2.5-4.9); Potassium, Blood 4.3 mmol/L (3.5-5.5); Sodium, Blood 143 mmol/L (136-145)
--- NOTE | 2021-04-28 07:02 | NUR ---
PT WAS A/0 X3, STABLE VITAL SIGNS, NO ACCUTE CHANGES, PT WAS PLEASANT AND COOPERATIVE BUT HAD A DELAY IN RESPONDS. PT IS WAITING FOR OUT PATIENT DIALYSIS
--- NOTE | 2021-04-28 16:51 | NUR ---
SHIFT SUMMARY PT AWAKE AT START OF SHIFT, INDEPENDENT TO BTHRM TO VOID. PT WAITING FOR OPENINGS AT [facility] FOR OUTPT DIALYSIS. PT HAVING TO STAY IN HOSPITAL UNTIL OPENING AVAILABLE. NO DIALYSIS TODAY. UP TO SHOWER. LINEN CHANGED. JOHNNIE EDWARDS ON. MEDICATED PER EMAR FOR CHRONIC BACK PAIN. PLEASANT AND CO-OP WITH CARE. BROTHER IN TO VISIT THIS AFTERNOON. DENIED FURTHER NEEDS TO PRESENT. CALL LT IN REACH.
[2021-04-29 04:56] LABS: BASOPHILS ABSOLUTE AUTO 0.03 K/mm3 (0.00-0.23); BASOPHILS PERCENT AUTO 1 % (0-2); EOSINOPHILS ABSOLUTE AUTO 0.23 K/mm3 (0.00-0.68); EOSINOPHILS PERCENT AUTO 6 % (0-6); Hematocrit 26.7 % (37.0-53.0); Hemoglobin 8.4 g/dL (13.5-17.5); IMMATURE GRAN ABSOLUTE AUTO 0.01 K/mm3 (0.00-0.10); IMMATURE GRAN PERCENT AUTO 0 % (0-1); LYMPHOCYTES ABSOLUTE AUTO 0.52 K/mm3 (0.84-5.20); LYMPHOCYTES PERCENT AUTO 13 % (21-46); MONOCYTES ABSOLUTE AUTO 0.54 K/mm3 (0.16-1.47); MONOCYTES PERCENT AUTO 13 % (4-13); Mean Corpuscular HGB 30.2 pg (26.0-34.0); Mean Corpuscular HGB Conc 31.5 g/dL (31.5-36.5); Mean Corpuscular Volume 96 fL (80-100); NEUTROPHILS ABSOLUTE AUTO 2.72 K/mm3 (1.96-9.15); NEUTROPHILS PERCENT AUTO 67 % (41-73); Platelet Count 215 K/mm3 (150-400); Red Blood Cell Count 2.78 M/mm3 (4.30-5.90); White Blood Cell Count 4.05 K/mm3 (4.00-11.30)
--- NOTE | 2021-04-29 05:23 | NUR ---
PT WAS A/O X3, STABLE VITALS, NO ACUTE CHANGES. PT AND WAS PLEASANT AND COOPERATIVE AND SLEPT THROUGH THE NIGHT
[2021-04-29 05:50] LABS: Albumin, Blood 2.3 g/dL (3.4-5.0); Anion Gap 9 mmol/L (6-16); Blood Urea Nitrogen 52 mg/dL (8-24); CO2, Blood 28 mmol/L (21-32); Calcium, Blood 8.5 mg/dL (8.5-10.1); Chloride, Blood 105 mmol/L (98-108); Glomerular Filtration Rate 10 (60-); Glucose, Blood 97 mg/dL (70-99); Potassium, Blood 4.7 mmol/L (3.5-5.5); Sodium, Blood 142 mmol/L (136-145)
--- NOTE | 2021-04-29 13:41 | NUR ---
SHIFT SUMMARY NO ACUTE CHANGES TO PRESENT THIS SHIFT. PT IS A&O, PLEASANT AND CO-OP UP INDEPENDENTLY IN RM AND TO BTHRM. TAKEN DOWN TO DIALYSIS THIS AM; PT TOLERATED WELL. RETURNED IN TIME FOR LUNCH. CONTINUES TO WAIT FOR SPOT AT OUTPT DIALYSIS TO OPEN. DENIED FURTHER NEEDS. RESTING QUIETLY AT THIS TIME. CALL LT IN REACH.
--- NOTE | 2021-04-29 17:11 | NUR ---
DRESSING TO R FLANK CHANGED AGAIN THIS AFTERNOON. CURRENTLY C/D/I.
[2021-04-30 04:49] LABS: Hematocrit 26.9 % (37.0-53.0); Hemoglobin 8.3 g/dL (13.5-17.5); Mean Corpuscular HGB Conc 30.9 g/dL (31.5-36.5); Mean Corpuscular Volume 97 fL (80-100); Mean Platelet Volume 9.8 fL (9.1-12.4); Platelet Count 208 K/mm3 (150-400); RDW Standard Deviation 60.1 fL (35.1-46.3); Red Blood Cell Count 2.77 M/mm3 (4.30-5.90); White Blood Cell Count 3.66 K/mm3 (4.00-11.30)
--- NOTE | 2021-04-30 05:52 | NUR ---
PT WAS A/O X3, STABLE VITAL SIGNS, NO ACUTE CHANGES. PT DENIES ANY PAIN, SLEPT AND ONLY GOT UP TO USE THE RESTROOM.
[2021-04-30 06:09] LABS: Albumin, Blood 2.2 g/dL (3.4-5.0); Anion Gap 7 mmol/L (6-16); Blood Urea Nitrogen 34 mg/dL (8-24); Bun/Creatinine Ratio 7.7 (12.0-20.0); CO2, Blood 31 mmol/L (21-32); Calcium, Blood 8.3 mg/dL (8.5-10.1); Chloride, Blood 105 mmol/L (98-108); Creatinine, Blood 4.41 mg/dL (0.60-1.20); Glomerular Filtration Rate 14 (60-); Glucose, Blood 89 mg/dL (70-99); Phosphorus, Blood 2.8 mg/dL (2.5-4.9); Potassium, Blood 4.2 mmol/L (3.5-5.5); Sodium, Blood 143 mmol/L (136-145)
--- NOTE | 2021-04-30 16:56 | NUR ---
ALERT. ORIENTED. NO DIALYSIS TODAY. WANTS TO GO BACK TO [facility]. CARE MANAGEMENT NOTIFIED NEEDS PLACE TO STAY, CARE GIVERS AND BED FOR DIALYSIS. CARE MANAGEMENT TO CALL AND TALK TO BROTHER. MEDICATED FOR CHRONIC PAIN WITH GOOD RESULTS. CLAUDIA
--- NOTE | 2021-04-30 17:01 | NUR ---
SEE WOUND CARE. DRESSING CHANGED EARLIER TODAY.
--- NOTE | 2021-05-01 04:50 | NUR ---
PT WAS A/O X3, NO ACUTE CHANGES, STABLE VITAL SIGNS. PT DENIES ANY PAIN. PT SLEPT WITH NO DISTRUBANCE. PT ONLY GOT UP TO USE THE RESROOM. DIALYSIS TODAY
[2021-05-01 06:02] LABS: Hematocrit 27.7 % (37.0-53.0); Hemoglobin 8.6 g/dL (13.5-17.5)
[2021-05-01 06:38] LABS: Albumin, Blood 2.2 g/dL (3.4-5.0); Anion Gap 9 mmol/L (6-16); Blood Urea Nitrogen 48 mg/dL (8-24); CO2, Blood 28 mmol/L (21-32); Calcium, Blood 8.8 mg/dL (8.5-10.1); Chloride, Blood 106 mmol/L (98-108); Creatinine, Blood 5.34 mg/dL (0.60-1.20); Glomerular Filtration Rate 11 (60-); Glucose, Blood 84 mg/dL (70-99); Phosphorus, Blood 3.7 mg/dL (2.5-4.9); Potassium, Blood 4.6 mmol/L (3.5-5.5); Sodium, Blood 143 mmol/L (136-145)
--- NOTE | 2021-05-01 15:49 | NUR ---
ALERT. COOPERATIVE. PLEASANT. INDEPENDENT IN ROOM. WOUND CARE TO BACK WITH NEW PIC TAKEN. MEDICATED WITH SCHEDULED MEDS WITH GOOD RESULTS. UNLABORED RESPIRATIONS. WCTM.
--- NOTE | 2021-05-01 15:55 | NUR ---
TALKED TO ABOUT NO IV ASSESS NEEDED. HAS NOT RECEIVED ANY MEDS THRU IV FOR OVER A WEEK. OK TO [place].
--- NOTE | 2021-05-02 05:08 | NUR ---
PT WAS ALERT AND ORIENTED X3, STABLE VITALS, NO ACUTE CHANGES, PT DENIES PAIN AND SLEPT THROUGH THE NIGHT.
[2021-05-02 06:04] LABS: Hematocrit 26.5 % (37.0-53.0); Hemoglobin 8.3 g/dL (13.5-17.5)
[2021-05-02 06:39] LABS: Albumin, Blood 2.3 g/dL (3.4-5.0); Anion Gap 5 mmol/L (6-16); Blood Urea Nitrogen 38 mg/dL (8-24); Bun/Creatinine Ratio 7.8 (12.0-20.0); CO2, Blood 31 mmol/L (21-32); Calcium, Blood 8.2 mg/dL (8.5-10.1); Chloride, Blood 105 mmol/L (98-108); Creatinine, Blood 4.88 mg/dL (0.60-1.20); Glomerular Filtration Rate 12 (60-); Glucose, Blood 87 mg/dL (70-99); Magnesium, Blood 2.2 mg/dL (1.6-2.4); Phosphorus, Blood 3.7 mg/dL (2.5-4.9); Potassium, Blood 4.3 mmol/L (3.5-5.5); Sodium, Blood 141 mmol/L (136-145)
--- NOTE | 2021-05-02 17:20 | NUR ---
PATIENT IS A/O X3, SLOW TO RESPOND AT TIMES. PLEASANT AND COOPERATIVE WITH CARE. THE PATIENT WORKED WITH PHYSICAL THERAPY THIS SHIFT. THE DRESSING ON THE THE PATIENT'S GROWTH ON BACK WAS CHANGED THIS SHIFT. CDI. INDEPENDENT IN ROOM. PATIENT COMPLAINED OF HEADACHE THIS SHIFT. MEDICATED WITH TYLENOL. NO ACUTE CHANGES. WAITING FOR PLACEMENT. THIS NURSE WILL CONTINUE TO CARE FOR THE PATIENT UNTIL SHIFT REPORT IS GIVEN TO ONCOMING NURSE.
--- NOTE | 2021-05-03 03:46 | NUR ---
AVIATION MAINTENANCE INSTRUCTOR SUMMARY PATIENT HAD A FAIR SHIFT HIS VITALS WERE STABLE. HE STATED HE HAD A HEADACHE AND [facility]. PATIENT WAS ENCOURAGED TO GET SOME REST/ SLEEP TO HELP RELAX HIM. WILL CONTINUE TO MONITOR PATIENT.
[2021-05-03 05:50] LABS: Hematocrit 27.5 % (37.0-53.0); Hemoglobin 8.7 g/dL (13.5-17.5)
[2021-05-03 06:21] LABS: Albumin, Blood 2.5 g/dL (3.4-5.0); Anion Gap 8 mmol/L (6-16); Blood Urea Nitrogen 54 mg/dL (8-24); Bun/Creatinine Ratio 9.7 (12.0-20.0); CO2, Blood 27 mmol/L (21-32); Calcium, Blood 8.6 mg/dL (8.5-10.1); Chloride, Blood 103 mmol/L (98-108); Creatinine, Blood 5.56 mg/dL (0.60-1.20); Glomerular Filtration Rate 11 (60-); Glucose, Blood 91 mg/dL (70-99); Magnesium, Blood 2.4 mg/dL (1.6-2.4); Phosphorus, Blood 4.5 mg/dL (2.5-4.9); Potassium, Blood 4.8 mmol/L (3.5-5.5); Sodium, Blood 138 mmol/L (136-145)
--- NOTE | 2021-05-03 06:50 | NUR ---
PUNCH PRESS SETTER SUMMARY/ ADMISSION PT WAS BROUGHT FROM THE ED. HE IS ALERT AND ORIENTED. ASSESSMENT DONE AND CHARTED. NO SKIN BREAKDOWN. NO COMPLAINT LODGED. WILL CONTINUE TO MONITOE HIM.
--- NOTE | 2021-05-03 09:38 | NUR ---
PATIENT OFF UNIT TO DIALYSIS
--- NOTE | 2021-05-03 19:26 | NUR ---
PATIENT A/O. NO ACUTE CHANGES. NO SIGNS OF ACUTE DISTRESS. VITALS STABLE. TREATED PAIN PER MAR. PATIENT DID DIALYSIS TODAY. AMBULATES WELL TO THE BATHROOM.REPORT GIVEN TO MATERIALS DIRECTOR NURSE
--- NOTE | 2021-05-04 03:40 | NUR ---
STAGE ELECTRICIAN HELPER SUMMARY PATIENT HAD A FAIR SHIFT. HE SAID THE HEADACHE WAS RELIEVED BUT STILL HAD THE BACK PAIN. HE WAS MEDICATED SCHEDULED. VITALS ARE STABLE. WILL CONTINUE TO MONITOR HIM.
[2021-05-04 04:41] LABS: Hematocrit 28.9 % (37.0-53.0); Hemoglobin 9.1 g/dL (13.5-17.5)
[2021-05-04 05:20] LABS: Albumin, Blood 2.6 g/dL (3.4-5.0); Anion Gap 8 mmol/L (6-16); Blood Urea Nitrogen 36 mg/dL (8-24); Bun/Creatinine Ratio 8.2 (12.0-20.0); CO2, Blood 30 mmol/L (21-32); Calcium, Blood 8.7 mg/dL (8.5-10.1); Chloride, Blood 103 mmol/L (98-108); Creatinine, Blood 4.37 mg/dL (0.60-1.20); Glomerular Filtration Rate 14 (60-); Glucose, Blood 90 mg/dL (70-99); Magnesium, Blood 2.2 mg/dL (1.6-2.4); Phosphorus, Blood 3.6 mg/dL (2.5-4.9); Potassium, Blood 4.1 mmol/L (3.5-5.5); Sodium, Blood 141 mmol/L (136-145)
--- NOTE | 2021-05-05 04:05 | NUR ---
CERTIFIED RECREATIONAL THERAPIST SUMMARY PATIENT HAD A FAIR SHIFT. WITH STABLE V/S. HE SAID HE FELT BETTER, HEADACHE IMPROVED VERY WELL. WILL CONTINUE TO MONITOR HIM.
[2021-05-05 05:26] LABS: Hematocrit 28.5 % (37.0-53.0)
[2021-05-05 06:21] LABS: Albumin, Blood 2.6 g/dL (3.4-5.0); Anion Gap 11 mmol/L (6-16); Blood Urea Nitrogen 53 mg/dL (8-24); Bun/Creatinine Ratio 9.5 (12.0-20.0); CO2, Blood 25 mmol/L (21-32); Calcium, Blood 8.8 mg/dL (8.5-10.1); Chloride, Blood 103 mmol/L (98-108); Glomerular Filtration Rate 11 (60-); Glucose, Blood 90 mg/dL (70-99); Magnesium, Blood 2.2 mg/dL (1.6-2.4); Potassium, Blood 4.5 mmol/L (3.5-5.5); Sodium, Blood 139 mmol/L (136-145)
--- NOTE | 2021-05-05 18:46 | NUR ---
SHIFT SUMMARY PATIENT HAD DIAYLSIS THIS SHIFT. COMPLAINTS OF NAUSEA. PATIENT GIVEN ZOFRAN AND TYLENOL FOR A HEADACHE. DRESSING WAS CHANGED THIS SHIFT. CALL LIGHT WITHIN REACH. WILL CONTINUE TO CARE FOR THE PATIENT UNTIL SHIFT REPORT IS GIVEN TO ONCOMING NURSE.
[2021-05-06 05:31] LABS: Hematocrit 28.2 % (37.0-53.0); Hemoglobin 8.7 g/dL (13.5-17.5)
--- NOTE | 2021-05-06 05:50 | NUR ---
SUMMARY: A/OX4, INDEPENDENT AND CALLS APPROPRIATELY TO SPECIFY NEEDS. DX TO R.FLANK GROWTH REMAINS C/D/I. SCHEDULED NORCO PROVIDED FOR TOLERABLE RELIEF OF CHRONIC PAIN. NO ACUTE CHANGES, VSS/AFEBRILE. PT STILL AWAITING DIALYSIS CHAIR. HE'S DENIED NAUSEA AND ALL OTHER COMPLAINTS. WCTM AND REPORT TO DAY RN.
[2021-05-06 06:37] LABS: Albumin, Blood 2.4 g/dL (3.4-5.0); Anion Gap 8 mmol/L (6-16); Blood Urea Nitrogen 37 mg/dL (8-24); Bun/Creatinine Ratio 7.8 (12.0-20.0); CO2, Blood 30 mmol/L (21-32); Calcium, Blood 8.5 mg/dL (8.5-10.1); Chloride, Blood 104 mmol/L (98-108); Creatinine, Blood 4.77 mg/dL (0.60-1.20); Glomerular Filtration Rate 13 (60-); Glucose, Blood 84 mg/dL (70-99); Magnesium, Blood 2.1 mg/dL (1.6-2.4); Phosphorus, Blood 4.3 mg/dL (2.5-4.9); Potassium, Blood 4.4 mmol/L (3.5-5.5); Sodium, Blood 142 mmol/L (136-145)
--- NOTE | 2021-05-06 18:38 | NUR ---
SHIFT SUMMARY: PT A/O X 3 IND IN ROOM. PT PLEASANT AND COOPERATIVE. PT AMBULATED HALLS WITH PT TODAY AND DID WELL, STEADY GAIT. PT ATE WELL AND PAIN MANAGED WITH CURRENT REGIMEN. DRESSING CHANGE COMPLETED TO R FLANK GROWTH. NO S/S OF INFECTION AT SITE. NO ACUTE CHANGES OR CONCERNS THIS SHIFT.
--- NOTE | 2021-05-07 04:26 | NUR ---
pT WAS ADMITTED FOR POSTURAL DIZZINESS AND PRESYNCOPE, WHICH HAS CURRENTLY BEEN RESOLVED. hE IS A FULL CODE. pT IS CURRENTLY WAITING FOR DIALYSIS HE HAS ckd AND A gfr OF 6. hE ALSO HAS POLYCYSTIC LIVER DISEASE. hIS BROTHER, Socrates IS PT'S PROXY.
[2021-05-07 06:02] LABS: Hematocrit 28.6 % (37.0-53.0)
[2021-05-07 07:35] LABS: Albumin, Blood 2.5 g/dL (3.4-5.0); Anion Gap 12 mmol/L (6-16); Blood Urea Nitrogen 51 mg/dL (8-24); Bun/Creatinine Ratio 8.6 (12.0-20.0); CO2, Blood 25 mmol/L (21-32); Calcium, Blood 8.7 mg/dL (8.5-10.1); Chloride, Blood 102 mmol/L (98-108); Creatinine, Blood 5.93 mg/dL (0.60-1.20); Glomerular Filtration Rate 10 (60-); Glucose, Blood 89 mg/dL (70-99); Magnesium, Blood 2.1 mg/dL (1.6-2.4); Phosphorus, Blood 4.9 mg/dL (2.5-4.9); Potassium, Blood 4.5 mmol/L (3.5-5.5); Sodium, Blood 139 mmol/L (136-145)
--- NOTE | 2021-05-07 18:19 | NUR ---
SHIFT SUMMARY: PT A/O X 3 IND IN ROOM PLEASANT AND COOPERATIVE WITH CARES. PT HAD DIALYSIS TODAY AND TOLERATING WELL. PAIN MANAGED WITH CURRENT MEDICATION REGIMEN. DRESSING CHANGE COMPLETED TO R FLANK. NO CONCERNS WITH GROWTH AT THIS TIME. NO ACUTE CHANGES TODAY.
--- NOTE | 2021-05-08 04:15 | NUR ---
SHIFT SUMMARY 56 YR M ADMITTED ON 04/17/21 FOR POSTURAL DIZZINESS WITH PRESYNCOPE. FULL CODE. hE IS CURRENTLY WAITING FOR A CHAIR IN OUT-PATIENT DIALYSIS AND IS ABLE TO AMBULATE W/ ASSISTANCE. hE IS HAVING A GREAT DEAL OF PAIN IN HIS ABDOMEN AND IS CURRENTLY BEING GIVEN NORCO Q8H PRN PER JUL.
[2021-05-08 06:26] LABS: Hematocrit 28.4 % (37.0-53.0); Hemoglobin 8.9 g/dL (13.5-17.5)
[2021-05-08 07:05] LABS: Magnesium, Blood 2.2 mg/dL (1.6-2.4)
[2021-05-08 07:08] LABS: Albumin, Blood 2.4 g/dL (3.4-5.0); Anion Gap 6 mmol/L (6-16); Blood Urea Nitrogen 40 mg/dL (8-24); CO2, Blood 31 mmol/L (21-32); Calcium, Blood 8.6 mg/dL (8.5-10.1); Chloride, Blood 103 mmol/L (98-108); Creatinine, Blood 4.97 mg/dL (0.60-1.20); Glomerular Filtration Rate 12 (60-); Glucose, Blood 86 mg/dL (70-99); Phosphorus, Blood 3.9 mg/dL (2.5-4.9); Potassium, Blood 4.1 mmol/L (3.5-5.5); Sodium, Blood 140 mmol/L (136-145)
--- NOTE | 2021-05-08 17:29 | NUR ---
SHIFT SUMMARY PATIENT IS ALERT AND ORIENTED X3. PATIENT IS INDEPENDENT IN ROOM. PATIENT HAS HAS SCHEDULED OXYCODONE FOR CHRONIC BACK PAIN. PATIENTS PAIN IS WELL MANAGED BY CURRENT PAIN RX SCHEDULE. NO OTHER COMPLAINTS OF PAIN, NAUSEA, SOB, OR VOMITTING THIS SHIFT. PATIENT DID NOT HAVE DIALYSIS TODAY. PATIENT IS PLEASENT AND COOPERATIVE WITH CARE. NO ACUTE EVENTS THIS SHIFT. VITAL SIGNS REVIEWED. WILL MONITOR UNTIL SHIFT CHANGE.
--- NOTE | 2021-05-09 04:09 | NUR ---
SHIFT SUMMARY ADMITTED FOR DIZZINESS/PRESYNCOPE - RESOLVED. FULL CODE. DIALYSIS PT. PLAN IS FOR OUTPATIENT DIALYSIS, WHEN SPOT AVAILABLE. LUE FISTULA. HEPARIN FOR DVT PREVENTION. RT. FLANK GROWTH TO BE BIOPSIED OUTPT. DR. ROB IS RENAL CONSULT, DR. LONG IS GENERAL SURGERY CONSULT. HE LIVES ALONE. SCHEDULED NORCO GIVEN FOR BACK PAIN. NO NEW CONCERNS THIS SHIFT.
[2021-05-09 05:32] LABS: Hematocrit 29.2 % (37.0-53.0); Hemoglobin 9.3 g/dL (13.5-17.5)
[2021-05-09 06:49] LABS: Albumin, Blood 2.5 g/dL (3.4-5.0); Anion Gap 8 mmol/L (6-16); Blood Urea Nitrogen 58 mg/dL (8-24); Bun/Creatinine Ratio 9.2 (12.0-20.0); CO2, Blood 30 mmol/L (21-32); Chloride, Blood 103 mmol/L (98-108); Creatinine, Blood 6.29 mg/dL (0.60-1.20); Glomerular Filtration Rate 9 (60-); Glucose, Blood 86 mg/dL (70-99); Magnesium, Blood 2.2 mg/dL (1.6-2.4); Phosphorus, Blood 4.1 mg/dL (2.5-4.9); Potassium, Blood 4.4 mmol/L (3.5-5.5); Sodium, Blood 141 mmol/L (136-145)
--- NOTE | 2021-05-09 18:26 | NUR ---
SHIFT SUMMARY PATIENT IS ALERT AND ORIENTED X3. PATIENT HAD DIALYSIS TODAY WITHOUT INCIDENT. PATIENT HAS HAD NO COMPLAINTS OF NAUSEA, VOMITTING, SOB THIS SHIFT. PATIENT HAS SCHEDULED NORCO FOR CHRONIC PAIN. PATIENT HAS NOT REQUESTED ADDITIONAL PAIN RX. PATIENT HAS HAD NO ACUTE EVENTS THIS SHIFT. VITAL SIGNS REVIEWED. CALL LIGHT IN PLACE. WILL MONITOR UNTIL SHIFT CHANGE.
--- NOTE | 2021-05-10 04:24 | NUR ---
FOILING MACHINE OPERATOR SUMMARY ADMITTED FOR POSTURAL DIZZINESS WITH PRESYNCOPE (RESOLVED). PT IS FULL CODE. PT AWAITING SPOT WITH OUTPT DIALYSIS. PT HAS BEEN INDEPENDENT IN THE ROOM WITH MINIMAL ASSISTANCE. MEDICATED WITH SCHEDULED PAIN MEDS. NO OTHER CONCERNS THIS SHIFT.
[2021-05-10 04:37] LABS: Hematocrit 29.8 % (37.0-53.0); Hemoglobin 9.3 g/dL (13.5-17.5)
[2021-05-10 05:08] LABS: Albumin, Blood 2.6 g/dL (3.4-5.0); Anion Gap 9 mmol/L (6-16); Blood Urea Nitrogen 42 mg/dL (8-24); Bun/Creatinine Ratio 8.7 (12.0-20.0); CO2, Blood 30 mmol/L (21-32); Chloride, Blood 102 mmol/L (98-108); Creatinine, Blood 4.82 mg/dL (0.60-1.20); Glomerular Filtration Rate 13 (60-); Glucose, Blood 89 mg/dL (70-99); Phosphorus, Blood 3.8 mg/dL (2.5-4.9); Potassium, Blood 4.3 mmol/L (3.5-5.5); Sodium, Blood 141 mmol/L (136-145)
--- NOTE | 2021-05-10 18:46 | NUR ---
DAY SHIFT SUMMARY PT PLEASANT, NO CHANGES, WAITING DIALYSIS PLACEMENT, CALL LIGHT WITHIN REACH.
[2021-05-11 04:51] LABS: Hematocrit 29.1 % (37.0-53.0); Hemoglobin 9.2 g/dL (13.5-17.5)
[2021-05-11 05:17] LABS: Albumin, Blood 2.6 g/dL (3.4-5.0); Anion Gap 8 mmol/L (6-16); Blood Urea Nitrogen 62 mg/dL (8-24); Bun/Creatinine Ratio 9.9 (12.0-20.0); CO2, Blood 29 mmol/L (21-32); Chloride, Blood 102 mmol/L (98-108); Creatinine, Blood 6.25 mg/dL (0.60-1.20); Glomerular Filtration Rate 9 (60-); Glucose, Blood 92 mg/dL (70-99); Magnesium, Blood 2.3 mg/dL (1.6-2.4); Phosphorus, Blood 4.8 mg/dL (2.5-4.9); Potassium, Blood 4.2 mmol/L (3.5-5.5); Sodium, Blood 139 mmol/L (136-145)
--- NOTE | 2021-05-11 09:46 | NUR ---
PT OFF FLOOR FOR DIALYSIS. PT TAKEN DOWN TO DIALYSIS AT 0900 FOR DIALYSIS IN BED. PT RECEIVED BREAKFAST AND MEDICATIONS BEFORE TRANSPORT.
--- NOTE | 2021-05-11 12:36 | NUR ---
PT BACK ON FLOOR, IN ROOM POST DIAYLISIS. PT STATES FEELING FINE AND THAT DIALYSIS WENT WELL. NO CHANGES REPORTED FROM COPY ROOM TECHNICIAN.
--- NOTE | 2021-05-11 17:12 | NUR ---
DAY SHIFT SUMMARY PLEASANT PT, INDEPENDENT IN HIS ROOM. HERE AWAITING PLACEMENT FOR A DIALYSIS OUTPATIENT CHAIR TIME. PT HAD DIALYSIS TODAY, TOLERATED WELL, NO ISSUES REPORTED FROM SEPTIC CLEANER. CALL LIGHT WITHIN REACH. NO CHANGES WITH PT THIS SHIFT.
[2021-05-12 05:08] LABS: Hematocrit 30.1 % (37.0-53.0); Hemoglobin 9.5 g/dL (13.5-17.5)
[2021-05-12 06:03] LABS: Albumin, Blood 2.8 g/dL (3.4-5.0); Anion Gap 5 mmol/L (6-16); Blood Urea Nitrogen 45 mg/dL (8-24); Bun/Creatinine Ratio 9.3 (12.0-20.0); CO2, Blood 32 mmol/L (21-32); Chloride, Blood 104 mmol/L (98-108); Creatinine, Blood 4.86 mg/dL (0.60-1.20); Glomerular Filtration Rate 12 (60-); Glucose, Blood 90 mg/dL (70-99); Magnesium, Blood 2.3 mg/dL (1.6-2.4); Phosphorus, Blood 4.1 mg/dL (2.5-4.9); Potassium, Blood 4.3 mmol/L (3.5-5.5); Sodium, Blood 141 mmol/L (136-145)
--- NOTE | 2021-05-12 17:46 | NUR ---
DAY SHIFT SUMMARY PLEASANT PT WAITING FOR PLACEMENT WITH A DIAYLISIS CLINIC CHAIR TIME. WORKED WITH PHYSICAL THERAPY TODAY WHO STATED PT IS INDEPENDENT AND SHOULD BE UP WALKING MORE. C/O OF BACK PAIN THROUGHOUT THE DAY, SCHEDULED PAIN MEDS GIVEN RX PER EMAR. CALL LIGHT WITHIN REACH OF PT. NO OTHER CHANGES TO NOTE ON THIS PT FOR THIS SHIFT.
--- NOTE | 2021-05-13 03:17 | NUR ---
STERILE PRODUCTS PROCESSOR SUMMARY PATIENT HAD A FAIR SHIFT. HAD HIS SCHEDULED PAIN MED. HIS V/S WERE STABLE. NO COMPLAIN LODGED, WILL CONTINUE TO MONITOR HIM.
[2021-05-13 05:35] LABS: Hemoglobin 9.5 g/dL (13.5-17.5)
[2021-05-13 06:26] LABS: Albumin, Blood 2.8 g/dL (3.4-5.0); Anion Gap 9 mmol/L (6-16); Blood Urea Nitrogen 60 mg/dL (8-24); Bun/Creatinine Ratio 9.1 (12.0-20.0); CO2, Blood 26 mmol/L (21-32); Calcium, Blood 8.9 mg/dL (8.5-10.1); Chloride, Blood 104 mmol/L (98-108); Creatinine, Blood 6.57 mg/dL (0.60-1.20); Glomerular Filtration Rate 9 (60-); Glucose, Blood 93 mg/dL (70-99); Magnesium, Blood 2.2 mg/dL (1.6-2.4); Potassium, Blood 4.4 mmol/L (3.5-5.5); Sodium, Blood 139 mmol/L (136-145)
--- NOTE | 2021-05-13 09:10 | NUR ---
PATIENT OFF UNIT AT VIA BED TO DIALYSIS. STATED PAIN IS WELL CONTROLLED AT THIS TIME.
--- NOTE | 2021-05-13 18:08 | NUR ---
SHIFT SUMMARY: NO ACUTE EVENTS. HAD HD TODAY, TOLERATED WELL. C/O LOW BACK PAIN; MEDICATED WITH SCHEDULED PAIN MEDICATION WITH ADEQUATE RELIEF. LAST DOCUMENTED BM WAS 05/01, GOT BOWEL MEDS ORDERED; PT STATED HE HAD BM TODAY BUT NOT OBSERVED BY STAFF. L ARM FISTULA WITH POSITIVE THRILL AND BRUIT. STAYING IN BED ALL DAY; EDUCATED PT THAT HE NEEDS TO GET OOB FOR MEALS AND TAKE WALKS TO PREVENT DECONDITIONING, VERBALIZED UNDERSTANDING. HAD VISIT FROM HIS BROTHER TODAY.
--- NOTE | 2021-05-14 05:03 | NUR ---
MATERIAL CONTROL MANAGER SUMMARY ADMITTED FOR POSTURAL HYPOTENSION AND PRESYNCOPE (RESOLVED). PT IS A FULL CODE. AWAITING PLACEMENT WITH AN OUTPATIENT DIALYSIS CLINIC IN [place]. PT HAS BEEN INDEPENDENT IN THE ROOM. PT HAS CONTINUED CHRONIC BACK PAIN. NO OTHER CONCERNS THIS SHIFT.
[2021-05-14 05:44] LABS: Hematocrit 29.8 % (37.0-53.0); Hemoglobin 9.4 g/dL (13.5-17.5)
[2021-05-14 06:16] LABS: Albumin, Blood 2.7 g/dL (3.4-5.0); Anion Gap 8 mmol/L (6-16); Blood Urea Nitrogen 43 mg/dL (8-24); Bun/Creatinine Ratio 8.3 (12.0-20.0); CO2, Blood 30 mmol/L (21-32); Calcium, Blood 8.9 mg/dL (8.5-10.1); Chloride, Blood 100 mmol/L (98-108); Creatinine, Blood 5.15 mg/dL (0.60-1.20); Glomerular Filtration Rate 12 (60-); Glucose, Blood 90 mg/dL (70-99); Phosphorus, Blood 4.3 mg/dL (2.5-4.9); Potassium, Blood 4.2 mmol/L (3.5-5.5); Sodium, Blood 138 mmol/L (136-145)
--- NOTE | 2021-05-14 17:59 | NUR ---
SHIFT SUMMARY: NO ACUTE EVENTS. DID NOT HAVE DIALYSIS TODAY. CHRONIC BACK PAIN, HAS SCHEDULED PAIN MEDS. NEEDED ENCOURAGEMENT TO GET OOB FOR MEALS AND TO AMBULATE, DOES NOT TAKE THE INITIATIVE HIMSELF. AMBULATED AROUND UNIT X 1, GAIT STEADY, NEEDS NO ASSISTIVE DEVICES. GOOD APPETITE. NAPPED THIS AFTERNOON. AWAITING OUTPATIENT DIALYSIS FACILITY ACCESS.
--- NOTE | 2021-05-15 03:40 | NUR ---
ARTIST AND REPERTOIRE MANAGER SUMMARY PATIENT HAD A FAIR SHIFT. HIS VITALS WERE STABLE. HE DID NOT LODGE ANY COMPLAINT OVER NIGHT. WILL CONTINUE TO MONITOR THE PATIENT.
[2021-05-15 05:08] LABS: Hematocrit 29.9 % (37.0-53.0); Hemoglobin 9.4 g/dL (13.5-17.5)
[2021-05-15 06:23] LABS: Albumin, Blood 2.7 g/dL (3.4-5.0); Anion Gap 8 mmol/L (6-16); Blood Urea Nitrogen 61 mg/dL (8-24); Bun/Creatinine Ratio 9.2 (12.0-20.0); CO2, Blood 28 mmol/L (21-32); Calcium, Blood 8.7 mg/dL (8.5-10.1); Chloride, Blood 102 mmol/L (98-108); Creatinine, Blood 6.61 mg/dL (0.60-1.20); Glomerular Filtration Rate 9 (60-); Glucose, Blood 85 mg/dL (70-99); Magnesium, Blood 2.5 mg/dL (1.6-2.4); Phosphorus, Blood 4.8 mg/dL (2.5-4.9); Potassium, Blood 4.5 mmol/L (3.5-5.5); Sodium, Blood 138 mmol/L (136-145)
--- NOTE | 2021-05-15 10:15 | NUR ---
09 The pt was taken in his bed to dialysis.
--- NOTE | 2021-05-15 12:45 | NUR ---
pt returned from dialysis at 1205 pm. Left arm fistula noted to be wrapped in coban, and dressing is clean, dry and intact. Pt has no complaints of pain; in fact, he states that his back pain is "much better" at a "6/10". Assisted to sit up in bed for lunch. He declined sitting in the chair for the meal as he said he would be too cold.
--- NOTE | 2021-05-15 17:06 | NUR ---
assisted OOB to chair for dinner. Medications given.
--- NOTE | 2021-05-15 17:22 | NUR ---
Yahir is alert, oriented, and conversant, able to make his needs known. Dialysis today in the dialysis center 2nd floor from 0900 to noon. Afterwards he ate lunch, napped, and got up to chair for dinner. He has been given [place] for his chronic back pain, which he states is from severe scoliosis.
--- NOTE | 2021-05-16 03:20 | NUR ---
BAND INSTRUMENT MAKER SUMMARY PATIENT HAD A FAIR SHIFT. HE HAD SCHEDULED PAIN MEDICATION. HIS VITALS WERE STABLE. WILL CONTINUE TO MONITOR HIM.
--- NOTE | 2021-05-16 16:52 | NUR ---
SHIFT SUMMARY NO ACUTE CHANGES TO PRESENT THIS SHIFT. PT IS A&O, PLEASANT AND CO-OP WITH CARE. UP INDEPENDENTLY TO BTHRM. CONTINUES TO WAIT FOR OUTPT DIALYSIS APPOINTMENTS. PT HAD DIALYSIS HERE YESTERDAY. NO DIALYSIS TODAY. MEDICATED PER EMAR FOR CHRONIC BACK PAIN. OOB FOR MEALS. PT TO GO FOR WALK AT LEAST ONCE PER DAY. DENIES FURTHER NEEDS AT THIS TIME. CALL LT IN REACH.
--- NOTE | 2021-05-17 04:02 | NUR ---
USED CAR SALESPERSON SUMMARY ADMITTED FOR POSTURAL HYPOTENSION WITH SYNCOPE (RESOLVED). PT IS FULL CODE. [place] PT HAS BEEN INDEPENDENT IN THE ROOM. PT HAS NO COMPLAINTS OF DIZZINESS AND IS EAGER TO GO HOME. ALERT AND ORIENTED. COOPERATIVE WITH CARE. NO OTHER CONCERNS THIS SHIFT.
[2021-05-17 05:35] LABS: Hematocrit 29.2 % (37.0-53.0); Hemoglobin 9.2 g/dL (13.5-17.5)
[2021-05-17 06:36] LABS: Albumin, Blood 2.7 g/dL (3.4-5.0); Anion Gap 10 mmol/L (6-16); Blood Urea Nitrogen 60 mg/dL (8-24); Bun/Creatinine Ratio 8.8 (12.0-20.0); CO2, Blood 26 mmol/L (21-32); Calcium, Blood 9.1 mg/dL (8.5-10.1); Chloride, Blood 102 mmol/L (98-108); Creatinine, Blood 6.79 mg/dL (0.60-1.20); Glomerular Filtration Rate 8 (60-); Glucose, Blood 82 mg/dL (70-99); Magnesium, Blood 2.3 mg/dL (1.6-2.4); Phosphorus, Blood 4.7 mg/dL (2.5-4.9); Potassium, Blood 4.4 mmol/L (3.5-5.5); Sodium, Blood 138 mmol/L (136-145)
--- NOTE | 2021-05-17 15:21 | NUR ---
SHIFT SUMMARY NO ACUTE CHANGES TO PRESENT THIS SHIFT. PT UP TO CHAIR FOR MEALS ON HIS OWN TODAY. UP TO BTHRM INDEPENDENTLY. TAKEN DOWN FOR DIALYSIS THIS AM. TOLERATED WELL. REMAINED IN CHAIR WATCHING TV THIS AFTERNOON. DENIES FURTHER NEEDS. CALL LT IN REACH.
[2021-05-18 05:53] LABS: Hematocrit 30.7 % (37.0-53.0); Hemoglobin 9.6 g/dL (13.5-17.5)
--- NOTE | 2021-05-18 06:03 | NUR ---
NO ACUTE CHANGES THROUGH THE NIGHT, PT SLEPT WELL AND WAS TREATED PER EMAR FOR CHRONIC PAIN. WILL CONTINUE TO MONITOR.
[2021-05-18 06:34] LABS: Albumin, Blood 2.7 g/dL (3.4-5.0); Anion Gap 7 mmol/L (6-16); Blood Urea Nitrogen 47 mg/dL (8-24); Bun/Creatinine Ratio 8.9 (12.0-20.0); CO2, Blood 29 mmol/L (21-32); Calcium, Blood 8.6 mg/dL (8.5-10.1); Chloride, Blood 102 mmol/L (98-108); Creatinine, Blood 5.26 mg/dL (0.60-1.20); Glomerular Filtration Rate 11 (60-); Glucose, Blood 88 mg/dL (70-99); Magnesium, Blood 2.1 mg/dL (1.6-2.4); Phosphorus, Blood 4.9 mg/dL (2.5-4.9); Sodium, Blood 138 mmol/L (136-145)
--- NOTE | 2021-05-18 15:37 | NUR ---
SHIFT SUMMARY NO ACUTE CHANGES TO PRESENT THIS SHIFT. PT RESTING QUIETLY AT START OF SHIFT, WOKE EASILY FOR CARE. SITTING UP TO TX TO CHAIR AT BS FOR BREAKFAST. PT INDEPENDENT IN RM AND TO BTHRM. MEDICATED PER EMAR FOR CHRONIC BACK PAIN. PT WITH ESRD WAITING FOR OUTPT DIALYSIS OPENING. RECEIVED DIALYSIS YESTERDAY; NONE TODAY. DR ROB HERE THIS AM TO SEE PT. DR ESPARZA HERE LATER. NEW ORDERS PLACED. NO C/O. ABLE TO MAKE NEEDS KNOWN. CALL LT IN REACH.
--- NOTE | 2021-05-19 04:27 | NUR ---
SHIFT SUMMARY GEOVANNA RECEIVED ONE DOSE OF PRN TYLENOL FOR CHRONIC BACK PAIN HE RATED A 8/10. AWAITING HEMODIALYSIS BED FOR OUTPT. STARTED EAR DROPS THIS EVENING, PT C/O LEFT EAR FEELING PLUGGED UP. POSITIVE BRUIT AND THRILL IN LEFT FOREARM FISTULA. NO IV ACCESS. ROOM AIR. INDEPENDENT IN ROOM, ALTHOUGH HE HAS WEAK BILAT GRASPS. RENAL DIET. A&O X 4.
[2021-05-19 05:10] LABS: Hematocrit 30.9 % (37.0-53.0); Hemoglobin 9.6 g/dL (13.5-17.5)
[2021-05-19 06:00] LABS: Albumin, Blood 2.9 g/dL (3.4-5.0); Anion Gap 10 mmol/L (6-16); Blood Urea Nitrogen 63 mg/dL (8-24); Bun/Creatinine Ratio 9.9 (12.0-20.0); CO2, Blood 28 mmol/L (21-32); Calcium, Blood 8.9 mg/dL (8.5-10.1); Chloride, Blood 101 mmol/L (98-108); Creatinine, Blood 6.39 mg/dL (0.60-1.20); Glomerular Filtration Rate 9 (60-); Glucose, Blood 89 mg/dL (70-99); Magnesium, Blood 2.4 mg/dL (1.6-2.4); Phosphorus, Blood 5.3 mg/dL (2.5-4.9); Potassium, Blood 4.2 mmol/L (3.5-5.5); Sodium, Blood 139 mmol/L (136-145)
--- NOTE | 2021-05-19 17:01 | NUR ---
NO ACUTE CHANGES PT AOX3 AND COOPERATIVE OF CARE. PT WENT FOR DIALYSIS TODAY. NO DISTRESS NOTED AND CALL LIGHT WITHIN REACH WILL CONTINUE TO MONITOR.
--- NOTE | 2021-05-20 04:06 | NUR ---
SHIFT SUMMARY NO ACUTE CHANGES. PT SLEEPING THROUGHOUT NIGHT. PT MEDICATED FOR CHRONIC BACK PAIN PER EMAR. CALL LIGHT WITHIN REACH. PT WILL CONTINUE TO BE MONITORED.
--- NOTE | 2021-05-20 18:08 | NUR ---
SHIFT SUMMARY NO ACUTE CHANGES THIS SHIFT. MEDICATED FOR LOW BACK PAIN PER EMR. AWAITING OUTPATIENT DIALYSIS CHAIR IN ORDER FOR DISCHAGE. VSS. WILL REPORT TO MINI ONEIL.
--- NOTE | 2021-05-21 04:12 | NUR ---
SHIFT SUMMARY NO ACUTE CHANGES. PT SLEEPING MOST OF THE NIGHT. PT MEDICATED FOR PAIN ON SCHEDULE PER EMAR. CALL LIGHT WITHIN REACH AND WILL CONTINUE TO MONITOR THE PT.
[2021-05-21 05:18] LABS: Hematocrit 30.3 % (37.0-53.0); Hemoglobin 9.4 g/dL (13.5-17.5)
[2021-05-21 06:07] LABS: Albumin, Blood 2.8 g/dL (3.4-5.0); Anion Gap 9 mmol/L (6-16); Blood Urea Nitrogen 54 mg/dL (8-24); Bun/Creatinine Ratio 8.1 (12.0-20.0); CO2, Blood 27 mmol/L (21-32); Calcium, Blood 9.1 mg/dL (8.5-10.1); Chloride, Blood 103 mmol/L (98-108); Creatinine, Blood 6.68 mg/dL (0.60-1.20); Glomerular Filtration Rate 9 (60-); Glucose, Blood 92 mg/dL (70-99); Magnesium, Blood 2.3 mg/dL (1.6-2.4); Phosphorus, Blood 5.4 mg/dL (2.5-4.9); Potassium, Blood 4.1 mmol/L (3.5-5.5); Sodium, Blood 139 mmol/L (136-145)
--- NOTE | 2021-05-21 18:08 | NUR ---
SHIFT SUMMARY- PT ALERT, ORIENTED, INDEPENDENT IN THE RROM. PT HAS HAD NO ACUTE CHANGE T/O THE SHIFT. AMLODIPINE WAS HELD THIS MORNING FOR CLINICAL JUDGEMENT, SBP 116 AND PT WAS ON HIS WAY TO DIALYSIS, HE DID RECIEVE HIS BETA YANI. VS HAVE REMAINED STABLE T/O THE DAY. PT AWAITING A DIALYSIS CHAIR TIME FOR DISCHARGE. WILL CTM AND REPORT TO NIGHT RN.
--- NOTE | 2021-05-22 04:35 | NUR ---
SHIFT SUMMARY A/O, ABLE TO MAKE NEEDS KNOWN. [facility]OPERATIVE [facility] CARE. ANSWERS QUESTIONS APPROPRIATELY. C/O PAIN/DISCOMFORT; MEDICATED PER EMAR. NO ACUTE CHANGES NOTED. APPEARED TO REST WELL OVERNIGHT. AWAITING DIALYSIS CHAIR BEFORE DISCHARGE. BED REMAINED IN LOWEST POSITION. CALL LIGHT AND BELONGINGS WITHIN REACH. REPORT TO ONCOMING RN.
[2021-05-22 05:39] LABS: Hemoglobin 10.1 g/dL (13.5-17.5)
[2021-05-22 06:55] LABS: Albumin, Blood 2.9 g/dL (3.4-5.0); Anion Gap 11 mmol/L (6-16); Blood Urea Nitrogen 40 mg/dL (8-24); Bun/Creatinine Ratio 7.2 (12.0-20.0); CO2, Blood 28 mmol/L (21-32); Chloride, Blood 102 mmol/L (98-108); Creatinine, Blood 5.53 mg/dL (0.60-1.20); Glomerular Filtration Rate 11 (60-); Glucose, Blood 88 mg/dL (70-99); Magnesium, Blood 2.2 mg/dL (1.6-2.4); Phosphorus, Blood 4.7 mg/dL (2.5-4.9); Potassium, Blood 4.3 mmol/L (3.5-5.5); Sodium, Blood 141 mmol/L (136-145)
--- NOTE | 2021-05-22 18:11 | NUR ---
SHIFT SUMMARY: NO ACUTE EVENTS. NO DIALYSIS TODAY. C/O CHRONIC LBP, MEDICATED PER EMAR WITH GOOD EFFECT. DECLINED SHOWER TODAY. IN BED NAPPING ALL DAY, IS GETTING UP TO CHAIR FOR ALL MEALS.
--- NOTE | 2021-05-23 04:54 | NUR ---
PT REMAINS ALERT AND ORIENTED X4, MADE NO COMPLAINTS THIS SHIFT, AND SLEPT FOR MOST OF THE NIGHT. CHRONIC PAINT TREATED PER EMAR SCHEDULED. NO OTHER CHANGES TO REPORT. STAFF WILL CONT TO MONITOR.
[2021-05-23 05:10] LABS: Hematocrit 29.3 % (37.0-53.0); Hemoglobin 9.6 g/dL (13.5-17.5)
[2021-05-23 06:27] LABS: Albumin, Blood 2.8 g/dL (3.4-5.0); Anion Gap 11 mmol/L (6-16); Blood Urea Nitrogen 59 mg/dL (8-24); Bun/Creatinine Ratio 8.5 (12.0-20.0); CO2, Blood 27 mmol/L (21-32); Chloride, Blood 100 mmol/L (98-108); Creatinine, Blood 6.98 mg/dL (0.60-1.20); Glomerular Filtration Rate 8 (60-); Glucose, Blood 85 mg/dL (70-99); Magnesium, Blood 2.4 mg/dL (1.6-2.4); Phosphorus, Blood 5.7 mg/dL (2.5-4.9); Potassium, Blood 4.4 mmol/L (3.5-5.5); Sodium, Blood 138 mmol/L (136-145)
--- NOTE | 2021-05-23 17:50 | NUR ---
SHIFT SUMMARY: NO ACUTE EVENTS. HAD DIALYSIS TODAY, TOLERATED WELL. C/O CHRONIC BACK PAIN; MEDICATED WITH SCHEDULED PAIN MEDS. WAS HAVING CONSTIPATION, BOWEL MEDS GIVEN WITH GOOD RESULT. INDEPENDENT IN ROOM, LACKS INITIATIVE TO AMBULATE IN HALLWAY, EATS MEALS IN CHAIR AND THEN GOES BTB.
--- NOTE | 2021-05-24 04:59 | NUR ---
ANAYELI SLEPT WELL, HAD NO COMPLAINTS OF DISCOMFORT WITH EXCEPTION OF MINOR LOW BACK PAIN WHICH IS CHRONIC AND WAS RESOLVED WITH HIS 2400 NORCO. NO SIGNIFICANT CHANGES NOTED. LEFT AC FISTULA WITH STRONG BRUIT AND THRILL
[2021-05-24 05:39] LABS: Hematocrit 29.9 % (37.0-53.0); Hemoglobin 9.5 g/dL (13.5-17.5)
[2021-05-24 06:59] LABS: Albumin, Blood 2.8 g/dL (3.4-5.0); Anion Gap 8 mmol/L (6-16); Blood Urea Nitrogen 40 mg/dL (8-24); Bun/Creatinine Ratio 7.2 (12.0-20.0); CO2, Blood 30 mmol/L (21-32); Calcium, Blood 9.1 mg/dL (8.5-10.1); Chloride, Blood 103 mmol/L (98-108); Creatinine, Blood 5.53 mg/dL (0.60-1.20); Glomerular Filtration Rate 11 (60-); Glucose, Blood 85 mg/dL (70-99); Magnesium, Blood 2.2 mg/dL (1.6-2.4); Phosphorus, Blood 4.6 mg/dL (2.5-4.9); Potassium, Blood 4.3 mmol/L (3.5-5.5); Sodium, Blood 141 mmol/L (136-145)
--- NOTE | 2021-05-24 16:56 | NUR ---
NO ACUTE CHANGES. PT INDEPENDENT IN ROOM AND CAN CALL APPROPRIATELY. CALL LIGHT WITHIN REACH WILL CONTINUE TO MONITOR.
--- NOTE | 2021-05-25 04:35 | NUR ---
Michael slept well all night. He was, as usual without complaint of pain or discomfort. No changes overnight. Per patient, he is to be dialysed today.
--- NOTE | 2021-05-25 09:28 | NUR ---
Pt A&Ox4. Denies any complaints. VSS. Ate breakfast. Goes down to HD at around 0900.
[2021-05-26 05:28] LABS: Hematocrit 30.9 % (37.0-53.0); Hemoglobin 9.8 g/dL (13.5-17.5)
[2021-05-26 06:05] LABS: Albumin, Blood 2.9 g/dL (3.4-5.0); Anion Gap 8 mmol/L (6-16); Blood Urea Nitrogen 35 mg/dL (8-24); Bun/Creatinine Ratio 6.1 (12.0-20.0); CO2, Blood 31 mmol/L (21-32); Calcium, Blood 9.1 mg/dL (8.5-10.1); Chloride, Blood 102 mmol/L (98-108); Creatinine, Blood 5.72 mg/dL (0.60-1.20); Glomerular Filtration Rate 10 (60-); Glucose, Blood 90 mg/dL (70-99); Magnesium, Blood 2.1 mg/dL (1.6-2.4); Phosphorus, Blood 4.5 mg/dL (2.5-4.9); Sodium, Blood 141 mmol/L (136-145)
--- NOTE | 2021-05-26 06:26 | NUR ---
NO CHANGES OVERNIGHT FOR ANAYELI. SLEPT INTERMITTANTLY WAKING TO USE THE BATHROOM OR SIT IN A CHAIR. VSS, STAGGERED SQ HEPARIN DUE TO MORNING DOSE AFTER DIALYSIS YESTERDAY AFTERNOON
--- NOTE | 2021-05-26 18:02 | NUR ---
SHIFT SUMMARY NO ACUTE CHANGES THIS SHIFT. PT IS A/O X4 AND IND IN HIS ROOM. NO DIALYSIS TODAY. PT CONTINUES TO WAIT FOR AN OUTPATIENT DIALYSIS CHAIR IN ORDER TO DISCHARGE. [facility] CURRENTLY DOES NOT HAVE ANY DIALYSIS SEATS SO A NEW CLINIC IN [place] IS BEING CONSIDERED. UNFORTUNATELY, THE CLINIC IN [place] IS UNABLE TO TAKE THE PT UNTIL THE END OF MAY/BEGINNING OF JUN AT THE EARLIEST. VSS. WILL REPORT TO MINI ONEIL.
--- NOTE | 2021-05-27 04:10 | NUR ---
SHIFT SUMMARY GEOVANNA AUSTIN VITAL SIGNS WERE WNL. STAYED IN BED ALL NIGHT, SEEMED A BIT WITHDRAWN, SLEPT MOST OF THE NIGHT. DIALYSIS IS SCHEDULED DURING THE DAY.
[2021-05-27 05:45] LABS: Hematocrit 30.5 % (37.0-53.0); Hemoglobin 9.6 g/dL (13.5-17.5)
[2021-05-27 06:20] LABS: Albumin, Blood 2.8 g/dL (3.4-5.0); Anion Gap 10 mmol/L (6-16); Blood Urea Nitrogen 48 mg/dL (8-24); Bun/Creatinine Ratio 6.9 (12.0-20.0); CO2, Blood 26 mmol/L (21-32); Calcium, Blood 9.1 mg/dL (8.5-10.1); Chloride, Blood 103 mmol/L (98-108); Creatinine, Blood 6.96 mg/dL (0.60-1.20); Glomerular Filtration Rate 8 (60-); Glucose, Blood 89 mg/dL (70-99); Magnesium, Blood 2.3 mg/dL (1.6-2.4); Potassium, Blood 4.1 mmol/L (3.5-5.5); Sodium, Blood 139 mmol/L (136-145)
--- NOTE | 2021-05-27 17:15 | NUR ---
SHIFT SUMMARY- PT ALERT AND ORIENTED, INDEPENDENT IN THE ROOM. PT IS A DIALYSIS PT AND HAD DIALYSIS TODAY. VS HAVE REMAINED STABLE T/O THE DAY. NO ACUTE CHANGE. PLAN IS TO DISCHARGE THE PT HOME ONCE HE HAS A CHAIR TIME FOR DIALYSIS OUTPATIENT.
--- NOTE | 2021-05-28 04:51 | NUR ---
SHIFT SUMMARY: GEOVANNA SLEPT MOST OF THE NIGHT. VITALS WERE STABLE. HE REMAINS INDEPENDENT IN THE ROOM. STILL WAITING FOR PLACEMENT.
[2021-05-28 05:57] LABS: Hematocrit 31.2 % (37.0-53.0); Hemoglobin 9.8 g/dL (13.5-17.5)
[2021-05-28 06:00] LABS: Albumin, Blood 2.8 g/dL (3.4-5.0); Anion Gap 7 mmol/L (6-16); Blood Urea Nitrogen 35 mg/dL (8-24); Bun/Creatinine Ratio 6.4 (12.0-20.0); CO2, Blood 30 mmol/L (21-32); Calcium, Blood 8.9 mg/dL (8.5-10.1); Chloride, Blood 106 mmol/L (98-108); Creatinine, Blood 5.44 mg/dL (0.60-1.20); Glomerular Filtration Rate 11 (60-); Glucose, Blood 92 mg/dL (70-99); Magnesium, Blood 2.1 mg/dL (1.6-2.4); Potassium, Blood 3.9 mmol/L (3.5-5.5); Sodium, Blood 143 mmol/L (136-145)
--- NOTE | 2021-05-28 17:03 | NUR ---
SHIFT SUMMARY NO ACUTE CHANGES NOTED TO PT THIS SHIFT. PT IS AAOX4, ABLE TO MAKE NEEDS KNOWN, PLEASANT AND COOPERATIVE TO CARE. INDEPENDENT IN THE ROOM AND CALLS APPROPRIATELY FOR ASSISTANCE. PT IS MEDICATED FOR CHRONIC BACK PAIN PER EMAR. NO C/O CP, SOB, OR N/V/D. BED AT LOWEST POSITION. CALL LIGHT WITHIN REACH.
[2021-05-29 05:53] LABS: Hematocrit 31.5 % (37.0-53.0); Hemoglobin 9.9 g/dL (13.5-17.5)
--- NOTE | 2021-05-29 06:09 | NUR ---
SHIFT SUMMARY PT IS A 56 Y/O MALE, ADMITTED FOR POSTURAL DIZZINESS. HE IS A&O X 4, INDEPENDENT IN THE ROOM. HE WAS MEDICATED FOR CHRONIC PAIN WITH SCHEDULED NORCO. NO C/O NAUSEA OR SOB. PT IS ON DIALYSIS, FISTULA IN LUE WITH STRONG BRUIT AND THRILL. VITAL SIGNS STABLE. NO ACUTE CHANGES IN PT CONDITION NOTED DURING THE NIGHT. WILL CONTINUE TO MONITOR AND TREAT PER EMAR UNTIL HAND OFF TO DAY SHIFT RN.
[2021-05-29 06:20] LABS: Magnesium, Blood 2.4 mg/dL (1.6-2.4)
[2021-05-29 06:21] LABS: Albumin, Blood 2.8 g/dL (3.4-5.0); Anion Gap 8 mmol/L (6-16); Blood Urea Nitrogen 44 mg/dL (8-24); Bun/Creatinine Ratio 6.2 (12.0-20.0); CO2, Blood 28 mmol/L (21-32); Calcium, Blood 8.8 mg/dL (8.5-10.1); Chloride, Blood 105 mmol/L (98-108); Creatinine, Blood 7.09 mg/dL (0.60-1.20); Glomerular Filtration Rate 8 (60-); Glucose, Blood 86 mg/dL (70-99); Phosphorus, Blood 4.7 mg/dL (2.5-4.9); Potassium, Blood 4.4 mmol/L (3.5-5.5); Sodium, Blood 141 mmol/L (136-145)
[2021-05-29 17:02] LABS: Influenza A, PCR NEGATIVE (NEGATIVE); Influenza B, PCR NEGATIVE (NEGATIVE); Resp Syncytial Virus, PCR NEGATIVE (NEGATIVE); SARS-Cov-2 (COVID-19) PCR, MMC NEGATIVE (NEGATIVE)
--- NOTE | 2021-05-29 18:10 | NUR ---
PATIENT IS ALERT AND ORIENTED AND COOPERATIVE WITH CARE. DIALYSIS TODAY. C/O BACK PAIN, MEDICATED PER EMAR. NO C/O DIZZINESS. WILL CONTINUE TO MONITOR
--- NOTE | 2021-05-30 06:36 | NUR ---
SHIFT SUMMARY PT IS A 56 Y/O MALE, ADMITTED FOR POSTURAL DIZZINESS AND CURRENTLY AWAITING OUTPATIEND DIALYSIS. PT IS A&O X 4, INDEPENDENT IN THE ROOM. VITAL SIGNS STABLE. PT WAS MEDICATED FOR CHRONIC PAIN WITH SCHEDULED OXYCODONE. NO C/O NAUSEA OR SOB. NO ACUTE CHANGES IN PT CONDITION NOTED DURING THE NIGHT. WILL CONTINUE TO MONITOR AND TREAT PER EMAR UNTIL HAND OFF TO DAY SHIFT RN.
[2021-05-30 09:10] LABS: HBSAG SCREEN Negative (Negative)
--- NOTE | 2021-05-30 16:47 | NUR ---
PATIENT IS ALERT AND ORIENTED AND COOPERATIVE WITH CARE. NO DIALYSIS TODAY. THE PATIENT IS CONCERNED ABOUT DISCHARGING HOME BEFORE HIS FAMILY/FRIENDS HAVE THE OPPORTUNITY TO CLEAN UP HIS HOUSE FOR HIM. PAIN MANAGED PER EMAR AND TO THE PATIENT'S SATISFACTION. WILL CONTINUE TO MONITOR
[2021-05-31 05:05] LABS: Hematocrit 31.7 % (37.0-53.0)
[2021-05-31 05:49] LABS: Albumin, Blood 2.8 g/dL (3.4-5.0); Anion Gap 8 mmol/L (6-16); Blood Urea Nitrogen 53 mg/dL (8-24); Bun/Creatinine Ratio 7.1 (12.0-20.0); CO2, Blood 29 mmol/L (21-32); Calcium, Blood 8.8 mg/dL (8.5-10.1); Chloride, Blood 102 mmol/L (98-108); Creatinine, Blood 7.42 mg/dL (0.60-1.20); Glomerular Filtration Rate 8 (60-); Glucose, Blood 90 mg/dL (70-99); Magnesium, Blood 2.2 mg/dL (1.6-2.4); Phosphorus, Blood 4.4 mg/dL (2.5-4.9); Potassium, Blood 4.4 mmol/L (3.5-5.5); Sodium, Blood 139 mmol/L (136-145)
--- NOTE | 2021-05-31 06:23 | NUR ---
SHIFT SUMMARY PATIENT ALERT AND ORIENTED. MEDICATED PER EMAR FOR PAIN. HAD NO COMPLAINTS OF SHORTNESS OF BREATH. NO ACUTE ISSUES NOTED OVERNIGHT. CALL LIGHT WITHIN REACH. REPORT GIVEN TO ONCOMING RN.
--- NOTE | 2021-05-31 18:15 | NUR ---
SHIFT SUMMARY- PT ALERT, ORIENTED, INDEPENDENT IN THE ROOM. PT HAD DIALYSIS AGAIN TODAY. STILL AWAITING A CHAIR TIME FOR OUT PT DIALYSIS PRIOR TO DISCHARGE. NO ACUTE CHHANGES T/OT EH SHIFT. NO IV ACCESS NEEDED.
--- NOTE | 2021-06-01 06:27 | NUR ---
SHIFT SUMMARY PATIENT ALERT AND ORIENTED. MEDICATED PER EMAR FOR PAIN. NO COMPLAINTS OF SHORTNESS OF BREATH. HAD NO ACUTE ISSUES NOTED OVERNIGHT. CALL LIGHT WITHIN REACH. REPORT GIVEN TO ONCOMING RN.
--- NOTE | 2021-06-01 18:09 | NUR ---
SHIFT SUMMARY- PT ALERT AND ORIENTED, IN BED, CALL LIGHT IN REACH, NO DIALYSIS TODAY PLAN IS FOR DIALYSIS TOMORROW. NO ACUTE CHANGE T/O THE DAY, NO IV ACCESS NEEDED AT THIS TIME.
--- NOTE | 2021-06-02 05:37 | NUR ---
SHIFT SUMMARY PATIENT ALERT AND ORIENTED. HAD NO COMPLAINTS OF PAIN OR SHORTNESS OF BREATH. NO ACUTE ISSUES NOTED. CALL LIGHT WITHIN REACH. REPORT GIVEN TO ONCOMING RN.
[2021-06-02 07:27] LABS: Hematocrit 32.4 % (37.0-53.0); Hemoglobin 10.3 g/dL (13.5-17.5)
[2021-06-02 08:27] LABS: Anion Gap 6 mmol/L (6-16); Blood Urea Nitrogen 50 mg/dL (8-24); Bun/Creatinine Ratio 7.1 (12.0-20.0); CO2, Blood 29 mmol/L (21-32); Calcium, Blood 8.6 mg/dL (8.5-10.1); Chloride, Blood 104 mmol/L (98-108); Creatinine, Blood 7.08 mg/dL (0.60-1.20); Glomerular Filtration Rate 8 (60-); Glucose, Blood 85 mg/dL (70-99); Magnesium, Blood 2.1 mg/dL (1.6-2.4); Potassium, Blood 4.4 mmol/L (3.5-5.5); Sodium, Blood 139 mmol/L (136-145)
--- NOTE | 2021-06-02 18:02 | NUR ---
SHIFT SUMMARY PATIENT MEDICATED FOR PAIN X2. PATIENT DENIES NAUSEA AND SHORTNESS OF BREATH. PATIENT IS INDEPENDENT IN HIS ROOM. PATIENT HAD DIALYSIS TODAY. TOLERATED WELL. SLEPT MOST OF AFTERNOON. PATIENT IS EATING AND DRINKING WELL. PATIENT IS PLEASANT AND COOPERATIVE WITH CARE.
[2021-06-03 04:41] LABS: Hematocrit 33.6 % (37.0-53.0); Hemoglobin 10.8 g/dL (13.5-17.5)
--- NOTE | 2021-06-03 04:46 | NUR ---
SHIFT SUMMARY PT IS AA0X4. PT IS INDEPENDENT. NO NOTABLE EVENTS OVERNIGHT. VSS REVIEWED. ALL MEDS GIVEN PER EMAR.BED ALARM IN LOWER POSITION AND CALL LIGHT WITHIN REACH. WILL CONTINUE TO MONITOR.
[2021-06-03 05:43] LABS: Albumin, Blood 2.9 g/dL (3.4-5.0); Anion Gap 7 mmol/L (6-16); Blood Urea Nitrogen 44 mg/dL (8-24); CO2, Blood 29 mmol/L (21-32); Calcium, Blood 8.7 mg/dL (8.5-10.1); Chloride, Blood 106 mmol/L (98-108); Creatinine, Blood 6.28 mg/dL (0.60-1.20); Glomerular Filtration Rate 9 (60-); Glucose, Blood 92 mg/dL (70-99); Magnesium, Blood 2.4 mg/dL (1.6-2.4); Potassium, Blood 4.5 mmol/L (3.5-5.5); Sodium, Blood 142 mmol/L (136-145)
--- NOTE | 2021-06-03 16:20 | NUR ---
SHIFT SUMMARY PATIENT MEDICATED FOR PAIN X2. PATIENT DENIES NAUSEA AND SHORTNESS OF BREATH. PATIENT IS INDEPENDENT IN ROOM. PATIENT DID NOT HAVE DIALYSIS TODAY. PATIENT SLEPT FOR MOST OF SHIFT. PATIENT DID GET INTO CHAIR TO EAT MEALS. PATIENT IS EATING AND DRINKING WELL. PATIENT IS PLEASANT AND COOPERATIVE WITH CARE.
--- NOTE | 2021-06-04 04:23 | NUR ---
SHIFT SUMMARY NO ACUTE EVENTS OVERNIGHT. PT SLEPT MOST OF THE SHIFT . PT IS INDEPENDENT . VSS REVIEWED . ALL MEDS WERE GIVEN PER EMAR. PT DENIES PAIN AND SOB. BED IN LOWER POSITION AND CALL LIGHT IN REACH. WILL CONTINUE TO MONITOR.
[2021-06-04 04:55] LABS: Hematocrit 31.6 % (37.0-53.0)
[2021-06-04 05:32] LABS: Albumin, Blood 2.9 g/dL (3.4-5.0); Anion Gap 6 mmol/L (6-16); Blood Urea Nitrogen 62 mg/dL (8-24); Bun/Creatinine Ratio 8.4 (12.0-20.0); CO2, Blood 29 mmol/L (21-32); Calcium, Blood 8.7 mg/dL (8.5-10.1); Chloride, Blood 105 mmol/L (98-108); Creatinine, Blood 7.41 mg/dL (0.60-1.20); Glomerular Filtration Rate 8 (60-); Glucose, Blood 97 mg/dL (70-99); Magnesium, Blood 2.4 mg/dL (1.6-2.4); Potassium, Blood 4.7 mmol/L (3.5-5.5); Sodium, Blood 140 mmol/L (136-145)
--- NOTE | 2021-06-04 17:22 | NUR ---
SHIFT NOTE PT TREATED PER MAR FOR BACK PAIN WITH NORCO FOR 11/30, HE STS THAT HIS BASELINE PAIN IS 10/31. PT HAS BEEN TO DIALYSIS TODAY. VSS. A/O X4. DENIES SOB OR CP. PT OTHERWISE HAS NO ACUTE CHANGES TO DISCUSS THIS SHIFT. HE IS STILL AWAITING SNF PLACEMENT
--- NOTE | 2021-06-05 04:30 | NUR ---
SHIFT SUMMARY NO ACUTE EVENTS THROUGH THE NIGHT .PT IS INDEPENDENT TO BSC.ALL MEDS WERE GIVEN PER EMAR. NO COMPLAINTS OF PAIN OR SOB. PT IS AWAITING ON OTPATIENT ARRANGEMENT FOR DYALISIS. BED ALARM ON AND CALL LIGHT IN REACH. WILL CONTINUE TO MONITOR IN CARE.
--- NOTE | 2021-06-05 08:00 | NUR ---
pt laying in bed watching tv, states his back hurts /, otherwise slept well, lungs are clear but dim t/o, resp even and unlabored, no cough noted, on r/a, hrr, murmur noted, no edema noted, ppp+1, cap refill <3sec, vs stable, afebrile, btx4, abd flat soft nontender, voids via urial and bathroom, asked him to use urinal for measurment, skin c/w/d, april evans, call light in reach.
--- NOTE | 2021-06-05 18:12 | NUR ---
pt sleeping when left undisturbed, watching tv at times, had a visitor, no acute changes this shift. call light in reach.
--- NOTE | 2021-06-06 04:18 | NUR ---
SHIFT SUMMARY NO ACUTE CHANGES OVERNIGHT. PT SLEPT INTERMITENTLY . ALL MEDS WERE GIVEN PER EMAR.PT IS RESTING COMFORTABLY AT THIS TIME.BED IN LOWER POSITION AND CALL LIGHT IN REACH. WILL CONTINUE TO MONITOR.
[2021-06-06 05:14] LABS: Hematocrit 31.8 % (37.0-53.0); Hemoglobin 10.2 g/dL (13.5-17.5)
[2021-06-06 05:58] LABS: Magnesium, Blood 2.3 mg/dL (1.6-2.4)
[2021-06-06 06:12] LABS: Albumin, Blood 3.1 g/dL (3.4-5.0); Anion Gap 12 mmol/L (6-16); Blood Urea Nitrogen 71 mg/dL (8-24); Bun/Creatinine Ratio 8.8 (12.0-20.0); CO2, Blood 26 mmol/L (21-32); Calcium, Blood 8.7 mg/dL (8.5-10.1); Chloride, Blood 100 mmol/L (98-108); Creatinine, Blood 8.05 mg/dL (0.60-1.20); Glomerular Filtration Rate 7 (60-); Glucose, Blood 93 mg/dL (70-99); Phosphorus, Blood 5.3 mg/dL (2.5-4.9); Potassium, Blood 4.2 mmol/L (3.5-5.5); Sodium, Blood 138 mmol/L (136-145)
--- NOTE | 2021-06-06 08:10 | NUR ---
SPOKE TO [facility]. REQUEST HOLD BP MEDS R/T DIALYSIS .
--- NOTE | 2021-06-06 16:02 | NUR ---
PT DID DIALYSIS TODAY. HAS BEEN RESTING MOST OF AFTERNOON. NO C/O PAIN THIS AFT. NO NEW CONCERN NOTED. BED IN LOW POSITION, CALL LITE IN REACH, CALLS APPROP
[2021-06-07 04:31] LABS: Hematocrit 32.1 % (37.0-53.0); Hemoglobin 10.3 g/dL (13.5-17.5)
[2021-06-07 05:30] LABS: Anion Gap 8 mmol/L (6-16); Blood Urea Nitrogen 45 mg/dL (8-24); Bun/Creatinine Ratio 7.8 (12.0-20.0); CO2, Blood 32 mmol/L (21-32); Calcium, Blood 8.6 mg/dL (8.5-10.1); Chloride, Blood 103 mmol/L (98-108); Creatinine, Blood 5.76 mg/dL (0.60-1.20); Glomerular Filtration Rate 10 (60-); Glucose, Blood 85 mg/dL (70-99); Magnesium, Blood 2.2 mg/dL (1.6-2.4); Phosphorus, Blood 4.2 mg/dL (2.5-4.9); Potassium, Blood 4.1 mmol/L (3.5-5.5); Sodium, Blood 143 mmol/L (136-145)
--- NOTE | 2021-06-07 06:26 | NUR ---
SHIFT SUMMARY A/O, ABLE TO MAKE NEEDS KNOWN. COOPERATIVE [facility]. ANSWERS QUESTIONS APPRORIATELY. INDEPENDEDNT IN THE ROOM. C/O PAIN/DISCOMFORT TO BACK; SCHEDULED DOSE GIVEN. NO ACUTE CHANGES NOTED. APPEARED TO REST MUCH OF THE NIGHT. BED REMAINS IN LOWEST POSITION. CALL LIGHT WITHIN REACH. REPROT TO ONCOMING RN.
--- NOTE | 2021-06-07 17:32 | NUR ---
PT QUITE PLEASANT TODAY. PAIN MANAGED WITH AVAIL MEDS. NO DIALYSIS TODAY. NO NEW CONCERNS NOTED. BED IN LOW POSITION,C ALL LITE IN [facility], CALLS APPROP
--- NOTE | 2021-06-08 03:46 | NUR ---
SHIFT SUMMARY A/O, ABLE TO MAKE NEEDS KNOWN. COOPERATIVE WITH CARE. ANSWERS QUESTIONS APPROPRIATELY. C/O PAIN/DISCOMFORT RATED 7/10 TO BACK; GIVEN SCHEDULED DOSE. INDEPENDENT IN ROOM. NO ACUTE CHANGES NOTED OVERNIGHT. APPEARED TO REST MUCH OF THE NIGHT. AWAITING OUTPATIENT DIALYSIS ARRANGEMENTS. BED IN LOWEST POSITION. CALL LIGHT AND BELONGINGS WITHIN REACH. REPORT TO ONCOMING RN.
[2021-06-08 05:01] LABS: Hematocrit 32.5 % (37.0-53.0); Hemoglobin 10.3 g/dL (13.5-17.5)
[2021-06-08 05:57] LABS: Anion Gap 8 mmol/L (6-16); Blood Urea Nitrogen 61 mg/dL (8-24); Bun/Creatinine Ratio 8.6 (12.0-20.0); CO2, Blood 29 mmol/L (21-32); Calcium, Blood 8.8 mg/dL (8.5-10.1); Chloride, Blood 101 mmol/L (98-108); Creatinine, Blood 7.06 mg/dL (0.60-1.20); Glomerular Filtration Rate 8 (60-); Glucose, Blood 101 mg/dL (70-99); Magnesium, Blood 2.3 mg/dL (1.6-2.4); Sodium, Blood 138 mmol/L (136-145)
--- NOTE | 2021-06-08 16:46 | NUR ---
SHIFT SUMMARY PT A&OX4 & IN PLEASENT MOOD T/O SHIFT. PT AMBULATED IN THE HALLS W/ STEADY GAIT. DRESSING TO LOWER L FLANK CHANGED. PT RESTED IN BED MOST OF SHIFT. UP TO CHAIR FOR MEALS. SCHEDULED MEDICATION FOR PAIN. INDEPENDENT IN ROOM. DIALYSIS FROM [phone]. VSS. CALL LIGHT W/IN REACH.
--- NOTE | 2021-06-09 04:58 | NUR ---
SHIFT SUMMARY PT HAD AN UNEVENTFUL NIGHT. SLEPT WELL MOST OF THE NIGHT. SCHEDULED PAIN MEDICATION GIVEN FOR CHRONIC BACK PAIN. FISTULA TO RIGHT ARM WITH GOOD THRILL AND BRUIT. VITAL SIGNS STABLE. PT AWAITING OUTPATIENT DIALYSIS CHAIR. WILL CONTINUE TO MONITOR.
[2021-06-09 05:28] LABS: Hematocrit 33.7 % (37.0-53.0); Hemoglobin 10.7 g/dL (13.5-17.5)
[2021-06-09 06:13] LABS: Anion Gap 5 mmol/L (6-16); Blood Urea Nitrogen 37 mg/dL (8-24); Bun/Creatinine Ratio 7.4 (12.0-20.0); CO2, Blood 33 mmol/L (21-32); Calcium, Blood 8.9 mg/dL (8.5-10.1); Chloride, Blood 104 mmol/L (98-108); Creatinine, Blood 4.98 mg/dL (0.60-1.20); Glomerular Filtration Rate 12 (60-); Glucose, Blood 91 mg/dL (70-99); Magnesium, Blood 2.2 mg/dL (1.6-2.4); Phosphorus, Blood 3.3 mg/dL (2.5-4.9); Potassium, Blood 4.2 mmol/L (3.5-5.5); Sodium, Blood 142 mmol/L (136-145)
--- NOTE | 2021-06-09 18:02 | NUR ---
PT AOX3 AND COOPERATIVE OF CARE. NO ACUTE CHANGES AT THIS TIME. PT INDEPENDENT IN ROOM. CALL LIGHT WITHIN REACH. PT DID REPORT HAVING A BM ON THIS LAST WEDNESDAY. NO DISTRESS NOTED CALL LIGHT WITHIN REACH. WILL CONTINUE TO MONITOR.
[2021-06-10 04:49] LABS: Hematocrit 33.3 % (37.0-53.0); Hemoglobin 10.7 g/dL (13.5-17.5)
--- NOTE | 2021-06-10 05:19 | NUR ---
SHIFT SUMMARY A/OX4, IND IN ROOM. PLEASANT AND COOPERATIVE WITH CARE. VSS, NO ACUTE CHANGES AT THIS TIME. BED IN LOWEST POSITION WITH CALL LIGHT IN REACH. WILL CONTINUE TO MONITOR AND REPORT TO ONCOMING RN.
[2021-06-10 05:28] LABS: Albumin, Blood 3.2 g/dL (3.4-5.0); Anion Gap 8 mmol/L (6-16); Blood Urea Nitrogen 58 mg/dL (8-24); Bun/Creatinine Ratio 8.3 (12.0-20.0); CO2, Blood 29 mmol/L (21-32); Calcium, Blood 9.1 mg/dL (8.5-10.1); Chloride, Blood 103 mmol/L (98-108); Creatinine, Blood 6.95 mg/dL (0.60-1.20); Glomerular Filtration Rate 8 (60-); Glucose, Blood 89 mg/dL (70-99); Magnesium, Blood 2.2 mg/dL (1.6-2.4); Phosphorus, Blood 4.3 mg/dL (2.5-4.9); Potassium, Blood 4.6 mmol/L (3.5-5.5); Sodium, Blood 140 mmol/L (136-145)
--- NOTE | 2021-06-10 12:47 | NUR ---
patient gave me verbal consent to care for them today.
--- NOTE | 2021-06-10 18:37 | NUR ---
PATIENT IS ALERT AND ORIENTED AND COOPERATIVE WITH CARE. PATIENT HAD DIALYSIS TODAY. DR. ROB CALLED THIS AFTERNOON AND SAID [facility] IN [place] IS EXPECTING TO HAVE AN EMPTY CHAIR NEXT WEEK AND IAS AVAILABLE TO THE PATIENT IF HE IS WILLING TO STAY LOCAL AND HAS FAMILY TO RESIDE WITH UNTIL A SPOT OPENS UP IN HIS HOME TOWN. CANAL TENDER SPOKE WITH DR. ROB ABOUT THIS THIS AFTERNOON AND DISCUSSED IT WITH THE PATIENT. IT SOUNDS LIKE THE PATIENT IS ON BOARD. C/O BACK PAIN, MEDICATED PER EMAR. WOUND CARE COMPLETE. WILL CONTINUE TO MONITOR
--- NOTE | 2021-06-11 04:26 | NUR ---
KETTLE COOK SUMMARY NO ACUTE CHANGES THIS SHIFT. PT AAOX4 AND PLEASANT. MEDICATED FOR PAIN WITH SCHEDULED MEDS PER EMAR. PT WAITING FOR OUTPT DIALYSIS CHAIR. VSS, WILL CONTINUE TO MONITOR.
--- NOTE | 2021-06-11 17:20 | NUR ---
SHIFT SUMMARY PT AXO, PLEASANT AND COOPERATIVE WITH CARE. VSS. UP AD CANDY IN ROOM. DRESSING TO R POSTERIOR FLANK CHANGED THIS SHIFT. WITH SMALL TO MODERATE AMOUNT OF DRAINAGE WITH A FOUL SMELL. CDI AT THIS TIME. NO IV IN PLACE. NO DIALYSIS THIS SHIFT. BED IN LOW POSITION, CALL LIGHT WITHIN REACH. NO OTHER CHANGES THIS SHIFT.
[2021-06-12 04:55] LABS: Hematocrit 34.2 % (37.0-53.0)
--- NOTE | 2021-06-12 05:01 | NUR ---
ASSISTANT CREDIT MANAGER SUMMARY PT STILL AWAITING OUTPT DIALYSIS PLACEMENT. PT HAS BEEN INDEPENDENT IN THE ROOM. WOKE AT 0100 FOR CHRONIC PAIN RX. PT CALM AND COOPERATIVE WITH CARE. NO OTHER CONCERNS THIS SHIFT.
[2021-06-12 05:26] LABS: Albumin, Blood 3.2 g/dL (3.4-5.0); Anion Gap 9 mmol/L (6-16); Blood Urea Nitrogen 55 mg/dL (8-24); Bun/Creatinine Ratio 8.1 (12.0-20.0); CO2, Blood 28 mmol/L (21-32); Calcium, Blood 8.9 mg/dL (8.5-10.1); Chloride, Blood 101 mmol/L (98-108); Creatinine, Blood 6.77 mg/dL (0.60-1.20); Glomerular Filtration Rate 8 (60-); Glucose, Blood 101 mg/dL (70-99); Magnesium, Blood 2.4 mg/dL (1.6-2.4); Phosphorus, Blood 4.6 mg/dL (2.5-4.9); Potassium, Blood 4.4 mmol/L (3.5-5.5); Sodium, Blood 138 mmol/L (136-145)
--- NOTE | 2021-06-12 18:42 | NUR ---
SHIFT SUMMARY- PT ALERT AND ORIENTED X4. PT IS AWAITING A CHAIR TIME FOR DIALYSIS FOR DISCHARGE. PT HAD DIALYSIS TODAY. NO ACUTE CHANGE T/O THE SHIFT. PT DOES HAVE A MEPILEX COVERING A SMALL GROWTH ON THE RIGHT FLANK DR QURESHI, PLAN IS FOR HIM TO FOLLOW UP WITH DR LONG OUT PT PER DR NOTE. PT CURRENTLY IN BED, CALL LIGHT IN REACH NO S&S OF DISTRESS. WILL CTM AND PASS ON TO NIGHT RN IN BEDSIDE REPORT.
--- NOTE | 2021-06-13 04:35 | NUR ---
SHIFT SUMMARY NO ACUTE CHANGES TO REPORT THIS SHIFT, PT HAS RESTED MOST OF THE NIGHT AND HAS DENIED NEEDS. INDEPENDENT IN THE ROOM. PLAN OF CARE REMAINS UNCHANGED. BED IN LOWEST POSITION, CALL LIGHT WITHIN REACH.
[2021-06-13 05:01] LABS: Hematocrit 34.3 % (37.0-53.0); Hemoglobin 11.1 g/dL (13.5-17.5)
[2021-06-13 06:02] LABS: Anion Gap 9 mmol/L (6-16); Blood Urea Nitrogen 40 mg/dL (8-24); Bun/Creatinine Ratio 6.5 (12.0-20.0); CO2, Blood 28 mmol/L (21-32); Calcium, Blood 8.7 mg/dL (8.5-10.1); Chloride, Blood 102 mmol/L (98-108); Creatinine, Blood 6.12 mg/dL (0.60-1.20); Glomerular Filtration Rate 10 (60-); Glucose, Blood 109 mg/dL (70-99); Magnesium, Blood 2.3 mg/dL (1.6-2.4); Phosphorus, Blood 3.7 mg/dL (2.5-4.9); Potassium, Blood 4.1 mmol/L (3.5-5.5); Sodium, Blood 139 mmol/L (136-145)
--- NOTE | 2021-06-13 16:54 | NUR ---
PATIENT IS ALERT AND ORIENTED AND COOPERATIVE WITH CARE. BACK PAIN MANAGED TO PATIENT'S SATISFACTION. INDEPENDENT IN HIS ROOM. NO NEW CONCERNS TODAY. WILL CONTINUE TO MONITOR
[2021-06-14 04:24] LABS: Hematocrit 32.4 % (37.0-53.0); Hemoglobin 10.5 g/dL (13.5-17.5)
[2021-06-14 04:39] LABS: Albumin, Blood 2.8 g/dL (3.4-5.0); Anion Gap 9 mmol/L (6-16); Blood Urea Nitrogen 56 mg/dL (8-24); Bun/Creatinine Ratio 7.7 (12.0-20.0); CO2, Blood 26 mmol/L (21-32); Calcium, Blood 8.8 mg/dL (8.5-10.1); Chloride, Blood 101 mmol/L (98-108); Creatinine, Blood 7.26 mg/dL (0.60-1.20); Glomerular Filtration Rate 8 (60-); Glucose, Blood 103 mg/dL (70-99); Magnesium, Blood 2.3 mg/dL (1.6-2.4); Potassium, Blood 4.4 mmol/L (3.5-5.5); Sodium, Blood 136 mmol/L (136-145)
--- NOTE | 2021-06-14 04:45 | NUR ---
SHIFT SUMMARY: A&OX4, CHRONIC BACK PAIN MANAGED WITH SCHEUDLED NORCO. PATIENT ENDORSES ADEQAUATE PAIN RELIEF. HAD ONE URINE OCCURANCE ON NOC SHIFT. PATIENT SLEPT WELL THROUGH THE NIGHT. NO SIGNIFICANT EVENTS.
--- NOTE | 2021-06-14 07:45 | NUR ---
Pt laying in bed awake a/ox3, seems a bit slow, flat affect, reports 8/10 pain to back, pain meds will be administered as ordered, pt is cooperative with care, follows commands well, lungs are clear dim in bases, resp even and unlabored, no cough noted, hrr, no edema noted to le, cap refill <3sec, vs stable, afebrile, btx4, abd flat soft nontender, voids without diff, skin has a dressing to right flank, from mass, gets oob without diff, april, call light in reach.
--- NOTE | 2021-06-14 18:27 | NUR ---
pt had an uneventful day, did have dialysis with removal of 1100mls, has sat up in the chair most of the day, no complaints. call light in reach.
--- NOTE | 2021-06-15 06:40 | NUR ---
SHIFT SUMMARY: NO SIGINIFICANT EVENTS OVERNIGHT, PATIENT SLEPT WELL THROUGH THE NIGHT. PAIN TREATED PER EMAR. WCTM.
--- NOTE | 2021-06-15 08:00 | NUR ---
pt had an uneventful night, no complaints except his chronic back pain, takes po meds without diff, up to chair for meals, no acute changes. call light in reach.
--- NOTE | 2021-06-15 18:33 | NUR ---
pt up to chair for meals, uneventful day, no acute changes this shift. call light in reach.
[2021-06-16 04:40] LABS: Hematocrit 33.2 % (37.0-53.0); Hemoglobin 10.8 g/dL (13.5-17.5)
[2021-06-16 05:24] LABS: Albumin, Blood 2.8 g/dL (3.4-5.0); Anion Gap 11 mmol/L (6-16); Blood Urea Nitrogen 57 mg/dL (8-24); CO2, Blood 25 mmol/L (21-32); Calcium, Blood 8.5 mg/dL (8.5-10.1); Chloride, Blood 101 mmol/L (98-108); Creatinine, Blood 7.16 mg/dL (0.60-1.20); Glomerular Filtration Rate 8 (60-); Glucose, Blood 101 mg/dL (70-99); Magnesium, Blood 2.3 mg/dL (1.6-2.4); Phosphorus, Blood 4.8 mg/dL (2.5-4.9); Sodium, Blood 137 mmol/L (136-145)
--- NOTE | 2021-06-16 18:39 | NUR ---
PATIENT IS ALERT AND ORIENTED AND COOPERATIVE WITH CARE. DIALYSIS TODAY. PAIN MANAGED PER EMAR. DRESSING CHANGED ON RIGHT FLANK. WILL CONTINUE TO MONITOR
[2021-06-17 04:53] LABS: Hematocrit 33.4 % (37.0-53.0); Hemoglobin 10.6 g/dL (13.5-17.5)
[2021-06-17 05:15] LABS: Albumin, Blood 2.7 g/dL (3.4-5.0); Anion Gap 6 mmol/L (6-16); Blood Urea Nitrogen 43 mg/dL (8-24); CO2, Blood 30 mmol/L (21-32); Calcium, Blood 9.1 mg/dL (8.5-10.1); Chloride, Blood 102 mmol/L (98-108); Creatinine, Blood 6.15 mg/dL (0.60-1.20); Glomerular Filtration Rate 9 (60-); Glucose, Blood 96 mg/dL (70-99); Magnesium, Blood 2.3 mg/dL (1.6-2.4); Phosphorus, Blood 4.2 mg/dL (2.5-4.9); Sodium, Blood 138 mmol/L (136-145)
--- NOTE | 2021-06-17 06:44 | NUR ---
PATIENT HAS BEEN IN HOSPITAL SINCE THANKSGIVING TIME. CAME FOR WEAKNESS, UNSTEADINESS AND DIZZINESS. HAS ESRD AND POLYCYSTIC LIVER DISEASE. NORCO SCHEDULED Q8H FOR CHRONIC BACIK PAIN. RIGHT PROTRUDING FLANK MASS WHICH HE WILL HAVE OUTPATIENT FOLLOWUP AND BIOPSY ON. NEEDS DIALYSIS OUTPATIENT AND IS WAITING ON CHAIR TIME FOR HEMODIALYSIS, WHICH DOC NOTES STATE IS HARD TO COME BY.
[2021-06-17 08:11] LABS: HBSAG SCREEN Negative (Negative); HEP A AB, IGM Negative (Negative); HEP B CORE AB, IGM Negative (Negative); HEP C VIRUS AB <0.1 (0.0-0.9)
--- NOTE | 2021-06-17 17:59 | NUR ---
SHIFT SUMMARY EATING & DRINKING WELL. NO DIALYSIS TODAY. NO ACUTE CHANGES.
[2021-06-18 04:32] LABS: Hematocrit 32.6 % (37.0-53.0); Hemoglobin 10.6 g/dL (13.5-17.5)
--- NOTE | 2021-06-18 04:33 | NUR ---
SHIFT SUMMARY ADMITTED FOR POSTURAL DIZZYNESS W/SYNCOPE. FULL CODE. HE IS A DIALYSIS PT. HE NEEDS OUTPT DIALYSIS SET UP BEFORE HE CAN DC. FISTULA IN LEFT ARM. HE HAS A RT FLANK MASS WHICH WILL BE ADRESSED OUTPT. HE IS A&O X4, WITH FLAT AFFECT. HE IS INDEPENDENT. NO NEW CONCERNS THIS SHIFT.
[2021-06-18 04:48] LABS: Albumin, Blood 2.7 g/dL (3.4-5.0); Anion Gap 10 mmol/L (6-16); Blood Urea Nitrogen 62 mg/dL (8-24); Bun/Creatinine Ratio 8.5 (12.0-20.0); CO2, Blood 25 mmol/L (21-32); Calcium, Blood 8.9 mg/dL (8.5-10.1); Chloride, Blood 100 mmol/L (98-108); Creatinine, Blood 7.29 mg/dL (0.60-1.20); Glomerular Filtration Rate 8 (60-); Glucose, Blood 104 mg/dL (70-99); Magnesium, Blood 2.4 mg/dL (1.6-2.4); Phosphorus, Blood 4.9 mg/dL (2.5-4.9); Potassium, Blood 4.2 mmol/L (3.5-5.5); Sodium, Blood 135 mmol/L (136-145)
--- NOTE | 2021-06-18 18:47 | NUR ---
PATIENT IS ALERT AND ORIENTED AND COOPERATIVE WITH CARE. DIALYSIS TODAY. CARE MANAGEMENT LEFT A NOTICE FOR THE PATIENT STATING HE WILL BE DISCHARGED HOME TO [place],OR NEXT WEDNESDAY WITH A DIALYSIS CHAIR. NO NEW CONCERNS TODAY. WILL CONTINUE TO MONITOR
[2021-06-19 05:10] LABS: Hematocrit 33.2 % (37.0-53.0); Hemoglobin 10.8 g/dL (13.5-17.5)
[2021-06-19 06:02] LABS: Albumin, Blood 2.8 g/dL (3.4-5.0); Anion Gap 8 mmol/L (6-16); Blood Urea Nitrogen 53 mg/dL (8-24); Bun/Creatinine Ratio 8.3 (12.0-20.0); CO2, Blood 28 mmol/L (21-32); Calcium, Blood 8.5 mg/dL (8.5-10.1); Chloride, Blood 100 mmol/L (98-108); Glomerular Filtration Rate 9 (60-); Glucose, Blood 94 mg/dL (70-99); Magnesium, Blood 2.3 mg/dL (1.6-2.4); Potassium, Blood 4.1 mmol/L (3.5-5.5); Sodium, Blood 136 mmol/L (136-145)
--- NOTE | 2021-06-19 06:45 | NUR ---
SHIFT SUMMARY PATIENT ALERT AND ORIENTED. MEDICATED PER EMAR FOR PAIN. NO COMPLAINTS OF SHORTNESS OF BREATH. NO ACUTE ISSUES NOTED OVERNIGHT. CALL LIGHT WITHIN REACH. REPORT GIVEN TO ONCOMING RN.
--- NOTE | 2021-06-19 17:47 | NUR ---
SHIFT SUMMARY PATIENT SITTING IN CHAIR EATING DINNER. PATIENT A&OX4. INDEPENDENT IN ROOM. DID NOT RECEIVE DIALYSIS TODAY. AWAITING OUTPATIENT DIALYSIS CHAIR IN [place]. ANTICIPATING TUES DISCHARGE. DRESSING CHANGE ON BACK WOUND. NO SIGNIFICANT EVENTS T/O SHIFT. VSS. WILL CONTINUE TO MONITOR.
--- NOTE | 2021-06-20 18:10 | NUR ---
SHIFT SUMMARY PATIENT RESTING IN BED WATCHING TV. A&O. INDEPENDENT IN ROOM. RECEIVED DIALYSIS TODAY. TOLERATED WELL. SLEPT MOST OF THE DAY. MEDICATED PER JUL FOR PAIN. NO SIGNIFICANT EVENTS T/O SHIFT. BED IN LOW POSITION WITH CALL LIGHT IN REACH. WILL CONTINUE TO MONITOR.
[2021-06-21 05:03] LABS: Hematocrit 32.3 % (37.0-53.0); Hemoglobin 10.4 g/dL (13.5-17.5)
--- NOTE | 2021-06-21 05:31 | NUR ---
SHIFT SUMMARY - NO ACUTE CHANGES THROUGHOUT THIS SHIFT. PT SLEPT THROUGHOUT MOST OF THE NIGHT. PT TURNS HIMSELF INDEPENDENTLY IN BED. PT REPORTED HIS DISCHARGE IS PLANNED FOR NEXT WEDNESDAY HE REPORTS HE NOW HAS A CHAIR TIME FOR DIALYSIS. FLUIDS AT BEDSIDE. CALL LIGHT WITHIN REACH. BED IN LOW POSITION. WILL CONTINUE TO MONITOR UNTIL AM SHIFT CHANGE.
[2021-06-21 05:34] LABS: Albumin, Blood 2.8 g/dL (3.4-5.0); Anion Gap 10 mmol/L (6-16); Blood Urea Nitrogen 60 mg/dL (8-24); CO2, Blood 29 mmol/L (21-32); Calcium, Blood 9.2 mg/dL (8.5-10.1); Chloride, Blood 98 mmol/L (98-108); Creatinine, Blood 6.01 mg/dL (0.60-1.20); Glomerular Filtration Rate 10 (60-); Glucose, Blood 95 mg/dL (70-99); Magnesium, Blood 2.1 mg/dL (1.6-2.4); Phosphorus, Blood 4.5 mg/dL (2.5-4.9); Sodium, Blood 137 mmol/L (136-145)
--- NOTE | 2021-06-21 18:45 | NUR ---
PATIENT HAD A GOOD SHIFT. SOME MID BACK PAIN TREATED EFFECTIVELY WITH NARCO. WOULD DRESING CHANGED AND NURSING ORDER ENTERED INTO COMPUTER. ARANESP INJECTION GIVEN TONIGHT. PATIENT HAS DIALYSIS TOMORROW.
--- NOTE | 2021-06-22 04:03 | NUR ---
COMMERCIAL COUNSEL SUMMARY HAS BEEN RESTING QUIETLY WITH OCCASIONAL INTERRUPTIONS. SAID INTERRUPTIONS INCLUDED PAIN MEDS AND ASSESSMENTS. DENIED LOSS OF FEELING. VOICED PAIN MEDS EFFECTIVE. RESTING QUIETLY AT THIS TIME. CALL LIGHT IN REACH.
[2021-06-22 05:02] LABS: Hematocrit 30.7 % (37.0-53.0); Hemoglobin 10.1 g/dL (13.5-17.5)
[2021-06-22 05:32] LABS: Albumin, Blood 2.8 g/dL (3.4-5.0); Anion Gap 12 mmol/L (6-16); Blood Urea Nitrogen 77 mg/dL (8-24); Bun/Creatinine Ratio 9.7 (12.0-20.0); CO2, Blood 26 mmol/L (21-32); Calcium, Blood 9.3 mg/dL (8.5-10.1); Chloride, Blood 99 mmol/L (98-108); Glomerular Filtration Rate 7 (60-); Glucose, Blood 91 mg/dL (70-99); Magnesium, Blood 2.2 mg/dL (1.6-2.4); Phosphorus, Blood 5.8 mg/dL (2.5-4.9); Sodium, Blood 137 mmol/L (136-145)
--- NOTE | 2021-06-22 17:46 | NUR ---
Patient had dialysis today. Wound care completed for growth on back. Back pain in mid back consistent with yesterday- pain medication effective.
--- NOTE | 2021-06-23 03:07 | NUR ---
WINDCHILL ADMINISTRATOR SUMMARY HAS BEEN RESTING QUIETLY WITH FEW INTERRUPTIONS SINCE HS. RECEIVED ANALGESICS SCHEDULED. NO ATTEMPTS TO GET OUT OF BED WITHOUT HELP. NO VOICED VERTIGO. NO NOTED S/S ACUTE DISTRESS. CALL LIGHT IN REACH
--- NOTE | 2021-06-23 23:34 | NUR ---
2046 PT LYING IN BED, DENIES ANY DISCOMFORT AT THIS TIME. PT HAS GROWTH ON MID R BACK, CLEANED AND CHANGED DRESSING. WOUND HAS MODERATE AMOUNT OF THIN RED LIQUID. NO OTHER APPARENT SIGNS OF DISTRESS. CALL LIGHT IS IN REACH.
--- NOTE | 2021-06-24 00:02 | NUR ---
06/23/21 2200 PT LYING IN BED, AWAKE, WATCHING TV. NO APPARENT SIGNS OF DISTRESS. CALL LIGHT IS IN REACH.
--- NOTE | 2021-06-24 00:03 | NUR ---
PT LYING IN BED, EYES CLOSED, APPEARS TO BE RESTING. BREATHING IS EVEN, UNLABORED. NO APPARENT SIGNS OF DISTRESS. CALL LIGHT IS IN REACH.
--- NOTE | 2021-06-24 01:31 | NUR ---
PT LYING IN BED, EYES CLOSED, APPEARS TO BE RESTING. BREATHING IS EVEN, UNLABORED. NO APPARENT SIGNS OF DISTRESS. CALL LIGHT IS IN REACH.
--- NOTE | 2021-06-24 04:12 | NUR ---
PT LYING IN BED, EYES CLOSED, APPEARS TO BE RESTING. BREATHING IS EVEN, UNLABORED. NO APPARENT SIGNS OF DISTRESS. CALL LIGHT IS IN REACH.
--- NOTE | 2021-06-24 04:12 | NUR ---
PT IS AAO X 2-3, ON RA. REPORTED BACK PAIN, HE GETS SCHEDULED PAIN MEDS FOR THIS. GROWTH ON MID R BACK WITH DRESSING, CHANGED DRESSING.
[2021-06-24 05:18] LABS: Hematocrit 32.3 % (37.0-53.0); Hemoglobin 10.3 g/dL (13.5-17.5)
--- NOTE | 2021-06-24 05:35 | NUR ---
PT LYING IN BED, EYES CLOSED, APPEARS TO BE RESTING. BREATHING IS EVEN, UNLABORED. NO APPARENT SIGNS OF DISTRESS. CALL LIGHT IS IN REACH. NO OTHER CHANGES THIS SHIFT.
[2021-06-24 06:04] LABS: Magnesium, Blood 2.2 mg/dL (1.6-2.4)
[2021-06-24 06:09] LABS: Albumin, Blood 2.8 g/dL (3.4-5.0); Anion Gap 7 mmol/L (6-16); Blood Urea Nitrogen 63 mg/dL (8-24); CO2, Blood 28 mmol/L (21-32); Chloride, Blood 102 mmol/L (98-108); Creatinine, Blood 6.97 mg/dL (0.60-1.20); Glomerular Filtration Rate 8 (60-); Glucose, Blood 96 mg/dL (70-99); Phosphorus, Blood 4.7 mg/dL (2.5-4.9); Potassium, Blood 4.4 mmol/L (3.5-5.5); Sodium, Blood 137 mmol/L (136-145)
[2021-06-24] MEDS ORDERED: GABA300 PO (12:34)
--- NOTE | 2021-06-24 14:17 | NUR ---
PT DISCHARGE TO HOME WITH HH. PT TRANSPORTED VIA WC. PT HAD A DIALYSIS THIS AM, VSS. NO OTHER CONCERNS. PT AWARE OF UPCOMING APPOINTMENT ON 07/01/21. PT ALSO AWARE TO GET THE MEDICATION AT [facility]. PT BROTHER PICKED HIM UP. NO IV ACCESS.
== END 2021-06-24 13:45 | disposition home health service (06) | DRG 683 ==
LOC: ER 16:59 → MEDS 21:06
PROVIDERS: Internal Medicine Nephrology; Physician Assistant; ADMIT Family Medicine
DX: N17.9 Acute kidney failure, unspecified (principal); E87.1 Hypo-osmolality and hyponatremia; Q61.3 Polycystic kidney, unspecified; E87.2 Acidosis; Q44.6 Cystic disease of liver; R19.00 Intra-abdominal and pelvic swelling, mass and lump, unspecified site; Z23 Encounter for immunization; Z20.822 Contact with and (suspected) exposure to COVID-19; E83.39 Other disorders of phosphorus metabolism; E83.42 Hypomagnesemia; K59.00 Constipation, unspecified; I12.9 Hypertensive chronic kidney disease with stage 1 through stage 4 chronic kidney disease, or unspecified chronic kidney disease; D63.1 Anemia in chronic kidney disease; R51.9 Headache, unspecified; N18.6 End stage renal disease; E88.09 Other disorders of plasma-protein metabolism, not elsewhere classified; Z88.2 Allergy status to sulfonamides
CPT/HCPCS: 0241U; 36415; 36416; 36430; 71045; 76700; 80053; 80069; 80074; 81001; 82248; 82272; 82530; 82533; 82550; 82784; 83516; 83520; 83735; 83880; 84100; 84132; 84145; 84156; 84165; 84166; 84443; 84484; 84550; 85014; 85018; 85025; 85027; 86038; 86256; 86317; 86334; 86335; 86850; 86900; 86901; 86923; 87086; 87340; 90686; 93005; 93010; 94760; 97110; 97116; 97116-CQ; 97161; 97530; 97530-CQ; 99285-25; A9270; G0008; J0696; J0881; J1644; J1940; J2405; J3475; J7030; P9016